=== PATIENT | female | born 1995 | race Caucasian/White ===

== ENCOUNTER 2019-04-15 15:30 | Inpatient (IN) ==
[2019-04-15] MEDS ORDERED: NS 1,000 ML ONE (16:02)
[2019-04-15] MEDS ORDERED: VANCOMYCIN 1 GM/NS 1 GM/250 ML IVPB IV ONE ×2 (16:11→21:00)
[2019-04-15] MEDS ORDERED: ZOSYN 4.5 GM in NS 100 ML IV ONE (16:11)
[2019-04-15] MEDS ORDERED: NS 1,000 ML IV ONE (16:15)
[2019-04-15] MEDS: NS 2,000 ML IV ONE ×2 (16:17→16:36)
[2019-04-15 16:36] LABS: URINE SOURCE CATH
[2019-04-15 16:36] LABS: INR 1.26; PROTIME 16.5 Seconds (11.0-16.0)
[2019-04-15 16:37] LABS: PTT 40.3 Seconds (22.3-41.8)
[2019-04-15 16:42] LABS: BILIRUBIN URINE NEGATIVE (NEGATIVE); BLOOD URINE MODERATE (NEGATIVE); COLOR YELLOW; GLUCOSE URINE NEGATIVE (NEGATIVE); KETONE URINE NEGATIVE (NEGATIVE); LEUKOCYTES URINE TRACE (NEGATIVE); NITRITE URINE NEGATIVE (NEGATIVE); PH URINE 5.5; PROTEIN URINE 100 mg/dL (NEGATIVE); SP GRAVITY URINE 1.017; TURBIDITY URINE HAZY (CLEAR); UROBILINOGEN URINE 2 mg/dL (NORMAL)
[2019-04-15 16:43] LABS: UR EPITHELIAL CELLS >10 /HPF (<10); URINE BACTERIA NEGATIVE /HPF; URINE RBC <10 /HPF (<10); URINE WBC <10 /HPF (<10)
[2019-04-15 16:43] LABS: BASO# 0.04 X1000 (0.0-0.2); BASO% 0.3 % (0.0-0.8); HEMATOCRIT 29.9 % (37.0-47.0); HEMOGLOBIN 10.4 g/dL (12.0-16.0); IMM GRAN# 0.06 X1000 (0.0-0.04); IMM GRAN% 0.4 % (0.0-0.5); LYMPH# 1.12 X1000 (1.2-3.4); LYMPH% 8.2 % (20.5-51.1); MCH 27.9 PG (27-31); MCHC 34.8 g/dL (33-37); MCV 80.2 FL (81-99); MONO% 10.3 % (1.7-9.3); NEUT# 10.96 X1000 (1.4-6.5); NEUT% 80.8 % (42.2-75.2); PLT 62 X1000 (130-400); RBC 3.73 XMIL (4.2-5.4); WBC 13.58 X1000 (4.8-10.8)
[2019-04-15 16:44] LABS: BLOOD TYPE ARTERIAL; HCO3-(ACT) 14.6 mmoll (20.0-26.0); METHB 1.3 % (0.0-1.5); O2(CT) 17.6 mL/dL (15.0-23.0); O2HB 91.9 % (95.0-99.0); PCO2(98.6) 28 mmHg (35-45); PO2(98.6) 71 mmHg (60-100); SAMPLE BLOOD; SAO2 95.6 % (95.0-100.0); THB 13.6 g/dL (11.5-17.4); pH(98.6) 7.26 (7.35-7.45)
--- NOTE | 2019-04-15 16:51 | PROVIDER DOCUMENTATION ---
HPI-Fever - General Chief Complaint: SEPSIS ALERT - P Stated Complaint: SOB Time Seen by Provider: 04/15/19 15:42 Source: patient Allergies/Adverse Reactions: Patient Allergies Allergy/AdvReac Type Severity Reaction Status Date / Time piperacillin [From Zosyn] AdvReac Severe ANAPHYLAXIS Verified 04/15/19 17:19 tazobactam [From Zosyn] AdvReac Severe ANAPHYLAXIS Verified 04/15/19 17:19 Home Medications: Home Medication List Medication Instructions Recorded Confirmed Last Taken Type Guaifenesin [Mucinex] 600 mg PO PRN PRN 04/15/19 04/15/19 Unknown History - History of Present Illness-Fever Nature of Presenting Problem: pt is 23 YO female w past hx of IV drug use was dropped off at ED by male who stated she was coming off of several illicit drugs including methamphetamine, pt is extremely weak and lethargic upon arrival, states she has pain in lower extremities, lower abdomen, and rt hip with rt shoulder pain. pt reacts to painful stimuli but is very weak and possible disoriented during interview, she reports intermittent fevers for past week. 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 pt deneis allergies or PMH Fever Severity/Quality: reports: subjective Onset/Duration: reports: 1 week ago Timing: reports: intermittent Severity: reports: moderate Context: reports: decreased mental status, other (substance abuse DO w IV drug use) Cognitive Baseline: alert, oriented x3 Modifying Factors: improves with: nothing Associated Symptoms: reports: loss of appetite, malaise, muscle aches, nausea, shortness of breath, weakness, trouble walking Similar Symptoms Previously?: No Recently seen or treated by another doctor?: No - Glascow Coma Score Best Eye Response ([place]): (4) open spontaneously Best Verbal Response (Ron): (5) oriented Best Motor Response (Ron): (6) obeys commands Review of Systems - Adult - REVIEW OF SYSTEMS - ADULT ROS:: limited per condition Constitutional: reports: chills, fever, fatique Eyes: reports: no symptoms reported Ears, Nose, Mouth & Throat: reports: no symptoms reported Cardiovascular: reports: see HPI Respiratory: reports: see HPI Gastrointestinal: reports: nausea, poor appetite Genitourinary: reports: incontinence, urgency Integumentary: reports: see HPI Neurological: reports: no symptoms reported Psychiatric: reports: see HPI, other (substance abuse DO) Endocrine: reports: no symptoms reported Hematologic/Lymphatic: reports: no symptoms reported Allergic/Immunologic: reports: no symptoms reported Past History - Adult - PAST MEDICAL HISTORY-ADULT Review of Records: reports: Old Records Reviewed, Nursing Assessment Review, Medications Reviewed Major Childhood Illnesses: reports: denies history Cardiovascular: reports: denies history Respiratory: reports: denies history Gastrointestinal: reports: denies history Obstetrical/Gynecological: reports: denies history Genitourinary: reports: denies history Musculoskeletal: reports: chronic pain (back pain) Neurological: reports: denies history Psychiatric: reports: depression Endocrine/Immune: reports: denies history Other Conditions: reports: denies history - PRIOR SURGERIES/PROCEDURES Surgical/Procedure History: reports: none - IMMUNIZATION STATUS Childhood Immunizations: See Nurse Assessment Flu Vaccine: See Nurse Assessment - FAMILY HISTORY Family History: reviewed, not pertinent - SOCIAL HISTORY Smoking: greater than 1 pack/day Substance Use: none/never Alcohol Use Frequency: never Physical Exam-General - PHYSICAL EXAM-ADULT Initial Vital Signs Reviewed: Yes - CONSTITUTIONAL General Appearance: severe distress, thin, lethargic - EYES Eyes: PERRL/EOMI, pink conjunctivae - HEAD, EARS, NOSE, MOUTH & THROAT HENMT: normocephalic/atraumatic, moist mucous membranes - NECK Neck: non-tender - RESPIRATORY Respiratory: chest non-tender, accessory muscle use, crackles, other (tachypnic) - CARDIOVASCULAR Cardiovascular: normal peripheral pulses, regular rate, rhythm, no edema - GASTROINTESTINAL (ABDOMEN) Abdominal Exam: normal bowel sounds, soft, tenderness (generalized tenderness) - LYMPHATIC Lymphatic: no adenopathy, axilla node tender - MUSCULOSKELETAL Back Exam: normal inspection, no CVA tenderness Extremity: normal range of motion, non-tender, normal gait, normal inspection - SKIN Integumentary: normal color, normal turgor, warm/dry - NEUROLOGIC Neurologic: saw grinder II-XII nml as tested, grossly normal - PSYCHIATRIC Psych/Mental Status: normal mood/affect, normal thought content, normal thought process, oriented x 3 Progress - PLAN OF CARE/RESULTS Progress/Plan/Lab Results: Vital Signs - 8 hr 04/15/19 15:39 04/15/19 16:30 04/15/19 17:26 Temperature 98.3 F Pulse Rate 145 H 121 H 116 H Respiratory Rate 48 H 35 H 44 H Blood Pressure 91/61 103/46 110/63 O2 Sat by Pulse Oximetry 95 98 95 04/15/19 18:34 Temperature Pulse Rate 122 H Respiratory Rate 43 H Blood Pressure 100/59 O2 Sat by Pulse Oximetry 96 Bedside Urine ED: Urine Bedside Start: 04/15/19 15:50 Freq: ORDERED Status: Active Protocol: Activity Type Activity Date Activity User E-Sign Co-Sign Detail Recorded Client Recorded Date Recorded By Document 04/15/19 16:32 [id number] 04/15/19 16:32 [id number] 04/15/19 16:32 Point of Care [Bedside Point of Care] -Lot # [id number] - Results Negative -Control Line Visible? Yes Laboratory Results - last 24 hr 04/15/19 04/15/19 04/15/19 16:14 16:14 16:14 WBC 13.58 H RBC 3.73 L Hgb 10.4 L Hct 29.9 L MCV 80.2 L MCH 27.9 MCHC 34.8 RDW Std Deviation 14.0 Plt Count 62 L MPV Not Reportable Immature Gran % (Auto) 0.4 Neut % (Auto) 80.8 H Lymph % (Auto) 8.2 L [place] % (Auto) 10.3 H Eos % (Auto) 0.0 Baso % (Auto) 0.3 Immature Gran # (Auto) 0.06 H Neut # (Auto) 10.96 H Lymph # (Auto) 1.12 L [place] # (Auto) 1.40 H Eos # (Auto) 0.00 Baso # (Auto) 0.04 Segmented Neutrophils 79 H Lymphocytes 8 L Monocytes 13 H Hypochromia 3+ PT INR PTT (Actin FS) D-Dimer, Quantitative 6.33 H Specimen Type Sample Site pH pCO2 pO2 HCO3 Base Excess Oxyhemoglobin ABG O2 Sat (Calculated) ABG O2 Saturation ABG Carboxyhemoglobin ABG Methemoglobin Nitin Test A-a O2 Difference Total Hemoglobin Lactate Blood Gas Modality FiO2 % Sodium Potassium Chloride Carbon Dioxide Anion Gap BUN Creatinine Estimated GFR/1.73 m2 BUN/Creatinine Ratio Glucose POC Glucose Calculated Osmolality Calcium Total Bilirubin AST ALT Alkaline Phosphatase Creatine Kinase Creatine Kinase Index CK-MB (CK-2) Troponin T < 0.010 Total Protein Albumin Globulin Albumin/Globulin Ratio Plasma Lactate Urine Source Urine Color Urine Turbidity Urine pH Ur Specific [place] Urine Protein Ur Glucose (Stick) Ur Ketones (Stick) Urine Blood Urine Nitrite Urine Bilirubin Urobilinogen Dipstick Urine Leukocytes Urine WBC (Auto) Urine RBC (Auto) U Epithel Cells (Auto) Urine Bacteria (Auto) Urine Opiates Screen Ur Oxycodone Screen Urine Methadone Screen U Propoxyphene Qual Ur Barbituates Screen Ur Tricyclics Screen Ur Phencyclidine Scrn Ur Amphetamines Screen U Methamphetamines Scrn U Benzodiazepines Scrn Urine Cocaine Screen U Cannabinoids Screen Plasma/Serum Ethyl Alc 04/15/19 04/15/19 04/15/19 16:14 16:14 16:14 WBC RBC Hgb Hct MCV MCH MCHC RDW Std Deviation Plt Count MPV Immature Gran % (Auto) Neut % (Auto) Lymph % (Auto) [place] % (Auto) Eos % (Auto) Baso % (Auto) Immature Gran # (Auto) Neut # (Auto) Lymph # (Auto) [place] # (Auto) Eos # (Auto) Baso # (Auto) Segmented Neutrophils Lymphocytes Monocytes Hypochromia PT INR PTT (Actin FS) D-Dimer, Quantitative Specimen Type Sample Site pH pCO2 pO2 HCO3 Base Excess Oxyhemoglobin ABG O2 Sat (Calculated) ABG O2 Saturation ABG Carboxyhemoglobin ABG Methemoglobin Nitin Test A-a O2 Difference Total Hemoglobin Lactate Blood Gas Modality FiO2 % Sodium 124 L Potassium 3.5 Chloride 86 L Carbon Dioxide 21 L Anion Gap 17 BUN 24 H Creatinine 0.7 Estimated GFR/1.73 m2 > 60 BUN/Creatinine Ratio 34 Glucose 110 H POC Glucose Calculated Osmolality 254 Calcium 7.5 L Total Bilirubin 1.30 H AST 991 H ALT 180 H Alkaline Phosphatase 85 Creatine Kinase Creatine Kinase Index CK-MB (CK-2) Troponin T Total Protein 6.5 Albumin 2.7 L Globulin 4.0 Albumin/Globulin Ratio 1.0 Plasma Lactate 2.5 H Urine Source Urine Color Urine Turbidity Urine pH Ur Specific [place] Urine Protein Ur Glucose (Stick) Ur Ketones (Stick) Urine Blood Urine Nitrite Urine Bilirubin Urobilinogen Dipstick Urine Leukocytes Urine WBC (Auto) Urine RBC (Auto) U Epithel Cells (Auto) Urine Bacteria (Auto) Urine Opiates Screen Ur Oxycodone Screen Urine Methadone Screen U Propoxyphene Qual Ur Barbituates Screen Ur Tricyclics Screen Ur Phencyclidine Scrn Ur Amphetamines Screen U Methamphetamines Scrn U Benzodiazepines Scrn Urine Cocaine Screen U Cannabinoids Screen Plasma/Serum Ethyl Alc 04/15/19 04/15/19 04/15/19 16:14 16:14 16:22 WBC RBC Hgb Hct MCV MCH MCHC RDW Std Deviation Plt Count MPV Immature Gran % (Auto) Neut % (Auto) Lymph % (Auto) [place] % (Auto) Eos % (Auto) Baso % (Auto) Immature Gran # (Auto) Neut # (Auto) Lymph # (Auto) [place] # (Auto) Eos # (Auto) Baso # (Auto) Segmented Neutrophils Lymphocytes Monocytes Hypochromia PT 16.5 H INR 1.26 PTT (Actin FS) 40.3 D-Dimer, Quantitative Specimen Type ARTERIAL Sample Site R BRACHIAL pH 7.26 L pCO2 28 L pO2 71 HCO3 14.6 L Base Excess -13.0 L Oxyhemoglobin 91.9 L ABG O2 Sat (Calculated) 17.6 ABG O2 Saturation 95.6 ABG Carboxyhemoglobin 2.60 H ABG Methemoglobin 1.3 Nitin Test NO A-a O2 Difference 44.0 Total Hemoglobin 13.6 Lactate 1.10 Blood Gas Modality ROOM AIR FiO2 % 21.0 Sodium Potassium Chloride Carbon Dioxide Anion Gap BUN Creatinine Estimated GFR/1.73 m2 BUN/Creatinine Ratio Glucose POC Glucose Calculated Osmolality Calcium Total Bilirubin AST ALT Alkaline Phosphatase Creatine Kinase 451 H Creatine Kinase Index 0.4 CK-MB (CK-2) 1.68 Troponin T Total Protein Albumin Globulin Albumin/Globulin Ratio Plasma Lactate Urine Source Urine Color Urine Turbidity Urine pH Ur Specific [place] Urine Protein Ur Glucose (Stick) Ur Ketones (Stick) Urine Blood Urine Nitrite Urine Bilirubin Urobilinogen Dipstick Urine Leukocytes Urine WBC (Auto) Urine RBC (Auto) U Epithel Cells (Auto) Urine Bacteria (Auto) Urine Opiates Screen Ur Oxycodone Screen Urine Methadone Screen U Propoxyphene Qual Ur Barbituates Screen Ur Tricyclics Screen Ur Phencyclidine Scrn Ur Amphetamines Screen U Methamphetamines Scrn U Benzodiazepines Scrn Urine Cocaine Screen U Cannabinoids Screen Plasma/Serum Ethyl Alc 04/15/19 04/15/19 04/15/19 16:30 16:30 17:09 WBC RBC Hgb Hct MCV MCH MCHC RDW Std Deviation Plt Count MPV Immature Gran % (Auto) Neut % (Auto) Lymph % (Auto) [place] % (Auto) Eos % (Auto) Baso % (Auto) Immature Gran # (Auto) Neut # (Auto) Lymph # (Auto) [place] # (Auto) Eos # (Auto) Baso # (Auto) Segmented Neutrophils Lymphocytes Monocytes Hypochromia PT INR PTT (Actin FS) D-Dimer, Quantitative Specimen Type Sample Site pH pCO2 pO2 HCO3 Base Excess Oxyhemoglobin ABG O2 Sat (Calculated) ABG O2 Saturation ABG Carboxyhemoglobin ABG Methemoglobin Nitin Test A-a O2 Difference Total Hemoglobin Lactate Blood Gas Modality FiO2 % Sodium Potassium Chloride Carbon Dioxide Anion Gap BUN Creatinine Estimated GFR/1.73 m2 BUN/Creatinine Ratio Glucose POC Glucose 122 H Calculated Osmolality Calcium Total Bilirubin AST ALT Alkaline Phosphatase Creatine Kinase Creatine Kinase Index CK-MB (CK-2) Troponin T Total Protein Albumin Globulin Albumin/Globulin Ratio Plasma Lactate Urine Source CATH Urine Color YELLOW Urine Turbidity HAZY Urine pH 5.5 Ur Specific [place] 1.017 Urine Protein 100 A Ur Glucose (Stick) NEGATIVE Ur Ketones (Stick) NEGATIVE Urine Blood MODERATE A Urine Nitrite NEGATIVE Urine Bilirubin NEGATIVE Urobilinogen Dipstick 2 A Urine Leukocytes TRACE A Urine WBC (Auto) <10 Urine RBC (Auto) <10 U Epithel Cells (Auto) >10 A Urine Bacteria (Auto) NEGATIVE Urine Opiates Screen PRESUMPTIVE POSITIVE A Ur Oxycodone Screen NONE DETECTED Urine Methadone Screen NONE DETECTED U Propoxyphene Qual NONE DETECTED Ur Barbituates Screen NONE DETECTED Ur Tricyclics Screen NONE DETECTED Ur Phencyclidine Scrn NONE DETECTED Ur Amphetamines Screen PRESUMPTIVE POSITIVE A U Methamphetamines Scrn PRESUMPTIVE POSITIVE A U Benzodiazepines Scrn NONE DETECTED Urine Cocaine Screen NONE DETECTED U Cannabinoids Screen NONE DETECTED Plasma/Serum Ethyl Alc 04/15/19 19:00 WBC RBC Hgb Hct MCV MCH MCHC RDW Std Deviation Plt Count MPV Immature Gran % (Auto) Neut % (Auto) Lymph % (Auto) [place] % (Auto) Eos % (Auto) Baso % (Auto) Immature Gran # (Auto) Neut # (Auto) Lymph # (Auto) [place] # (Auto) Eos # (Auto) Baso # (Auto) Segmented Neutrophils Lymphocytes Monocytes Hypochromia PT INR PTT (Actin FS) D-Dimer, Quantitative Specimen Type Sample Site pH pCO2 pO2 HCO3 Base Excess Oxyhemoglobin ABG O2 Sat (Calculated) ABG O2 Saturation ABG Carboxyhemoglobin ABG Methemoglobin Nitin Test A-a O2 Difference Total Hemoglobin Lactate Blood Gas Modality FiO2 % Sodium Potassium Chloride Carbon Dioxide Anion Gap BUN Creatinine Estimated GFR/1.73 m2 BUN/Creatinine Ratio Glucose POC Glucose Calculated Osmolality Calcium Total Bilirubin AST ALT Alkaline Phosphatase Creatine Kinase Creatine Kinase Index CK-MB (CK-2) Troponin T Total Protein Albumin Globulin Albumin/Globulin Ratio Plasma Lactate 2.0 Urine Source Urine Color Urine Turbidity Urine pH Ur Specific [place] Urine Protein Ur Glucose (Stick) Ur Ketones (Stick) Urine Blood Urine Nitrite Urine Bilirubin Urobilinogen Dipstick Urine Leukocytes Urine WBC (Auto) Urine RBC (Auto) U Epithel Cells (Auto) Urine Bacteria (Auto) Urine Opiates Screen Ur Oxycodone Screen Urine Methadone Screen U Propoxyphene Qual Ur Barbituates Screen Ur Tricyclics Screen Ur Phencyclidine Scrn Ur Amphetamines Screen U Methamphetamines Scrn U Benzodiazepines Scrn Urine Cocaine Screen U Cannabinoids Screen Plasma/Serum Ethyl Alc Orders Category Date Time Status Cardiac Monitoring DIRECTED Care 04/15/19 15:50 Active ED: Urine Bedside ORDERED Care 04/15/19 15:50 Active Finger Stick Blood Sugar (ED) DIRECTED Care 04/15/19 16:11 Active [place] Cath Insertion ORDERED Care 04/15/19 16:12 Active IV Insertion ORDERED Care 04/15/19 16:16 Completed Notify MD of + Sepsis Screen NOW Care 04/15/19 16:16 Active Nursing- Obtain EKG ONCE Care 04/15/19 15:50 Active CHEST-1 VIEW [RAD] Stat Exams 04/15/19 16:[address] ABD/PELVIS/PULM ARTERIES [CT] Stat Exams 04/15/19 17:51 Completed ABG [RESP] Routine Lab 04/15/19 16:22 Completed ALCOHOL BLOOD Stat Lab 04/15/19 16:14 Completed BLOOD CULTURE [BLDCUL] Stat Lab 04/15/19 16:16 Received CBC WITH DIFF [HEME] Stat Lab 04/15/19 16:14 Completed CK PROFILE [SP CHEM] Stat Lab 04/15/19 16:14 Completed COMPREHENSIVE METABOLIC PANEL [CHEM] Stat Lab 04/15/19 16:14 Completed D-DIMER [COAG] Stat Lab 04/15/19 16:14 Completed LACTATE, PLASMA [CHEM] Lab 04/15/19 19:00 Completed LACTATE, PLASMA [CHEM] Lab 04/15/19 22:30 Uncollected LACTATE, PLASMA [CHEM] Q3H Lab 04/15/19 16:14 Completed PROTIME WITH INR [COAG] Stat Lab 04/15/19 16:14 Completed PTT [COAG] Stat Lab 04/15/19 16:14 Completed TROPONIN T Stat Lab 04/15/19 16:14 Completed URINALYSIS W/POSS RFLX CULT [URINALYSIS] Stat Lab 04/15/19 16:30 Completed URINE CULTURE [RM] Routine Lab 04/15/19 16:45 Received URINE DRUG SCREEN PL Stat Lab 04/15/19 16:30 Completed 0.9% Sodium Chloride Inj [Ns] 1,000 ml Med 04/15/19 16:02 Discontinued .ROUTE As directed 0.9% Sodium Chloride Inj [Ns] 1,000 ml Med 04/15/19 16:15 Discontinued IV 999 mls/hr 0.9% Sodium Chloride Inj [Ns] 2,000 ml Med 04/15/19 16:15 Discontinued IV 999 mls/hr Diphenhydramine [Benadryl] Med 04/15/19 17:00 Discontinued 50 mg .ROUTE .STK-MED ONE Diphenhydramine [Benadryl] Med 04/15/19 17:02 Discontinued 50 mg IV NOW ONE Lactated Ringers Inj [Lr] 1,000 ml Med 04/15/19 17:27 Active IV 125 mls/hr Levofloxacin 750 mg/D5w [Levaquin 750 mg/D5w] Med 04/15/19 17:26 Discontinued 750 mg in 150 ml IV NOW Lorazepam [Ativan] Med 04/15/19 17:05 Discontinued 0.5 mg IV NOW ONE Methylprednisolone Sod Succ [Solu-Medrol] Med 04/15/19 17:14 Discontinued 125 mg IV NOW ONE Piperacillin/Tazobactam [Zosyn] 4.5 gm Med 04/15/19 16:11 Discontinued 0.9% Sodium Chloride Inj [Ns] 100 ml IV NOW Vancomycin 1 gm/Ns Med 04/15/19 16:11 Discontinued 1 gm in 250 ml IV NOW Vancomycin 1 gm/Ns Med 04/15/19 21:00 Discontinued 1 gm in 250 ml IV NOW Oxygen Device Stat Oth 04/15/19 16:16 Active EKG [EKG] Stat Ther 04/15/19 15:50 Draft Transfer/Admit Order [TRANSFER] Routine Transfer 04/15/19 21:40 Ordered Result Diagrams: 04/15/19 16:14 04/15/19 16:14 - REASSESSMENT Reassessment #1 Time Reassessed: 18:00 Status: improving Reassessment Comment: good distal pulses, and cap refill, lethargic, BP stable w/o pressors, tach - EKG 1 Time of EKG reading by physician:: 16:26 EKG Read and Signed by:: Dipesh Muñoz EKG Interpretation (*Must complete 3 of following elements*): Abnormal Rate: 124 Rhythm: sinus tach [place]: normal QRS: normal, RBB ST Wave: normal - CONSULTS/PCP/HOSPITALIST Notification #1 *Consult/PCP/Hospitalist*: Dr Sandoval Reason/Comments: admit to [facility] ICU Consult Disposition: Admit Departure - Departure Date of Disposition Decision: 04/15/19 Time of Disposition Decision: 22:14 DIAGNOSIS: Sepsis, PNA (pneumonia), Transaminitis Disposition: ADMITTED INPATIENT 09 Certified Medical Emergency: Emergent Condition: Critical Referrals and Follow-Ups: None,PCP [Primary Care Provider] - - Critical Care Note This patient required my direct & personal management of CC.: Yes Total Time (mins): 120 Critical Care Statement: This patient required my direct personal management to treat or rule out processes, the absence of which, could potentiallly result in sudden, clinically significant life or limb threatening deterioration. Comments: pt was septic requiring 2000 ml bolus and antibiotic therapy Attestation - Physician/ CHANI Attestation Patient care was provided by Advanced Practice Provider:: Yes Advanced Practice Provider:: Servando Rodriguez Advanced Practice Provider documentation review:: The Mid-level provider documentation, treatment plan and medical decision making was reviewed by the physician who agrees with all treatment and medical decision making by the MLP. The physician spent face to face time with patient:: No Advanced Practice Provider documentation review:: Supervising physician onsite and consulted in the evaluation and care of this patient. The physician did not have a face to face encounter with the patient.
[2019-04-15 16:59] LABS: UR AMPHETAMINES QUAL PRESUMPTIVE POSITIVE (NONE DETECT); UR BARBITUATES QUAL NONE DETECTED (NONE DETECT); UR BENZODIAZEPIN QUAL NONE DETECTED (NONE DETECT); UR CANNABINOIDS QUAL NONE DETECTED (NONE DETECT); UR COCAINE QUAL NONE DETECTED (NONE DETECT); UR METHADONE QUAL NONE DETECTED (NONE DETECT); UR METHAMPHETAMINE QUAL PRESUMPTIVE POSITIVE (NONE DETECT); UR OPIATES QUAL PRESUMPTIVE POSITIVE (NONE DETECT); UR OXYCODONE QUAL NONE DETECTED (NONE DETECT); UR PCP QUAL NONE DETECTED (NONE DETECT); UR PROPOXYPHENE QUAL NONE DETECTED (NONE DETECT); UR TCA QUAL NONE DETECTED (NONE DETECT)
[2019-04-15] MEDS ORDERED: BENADRYL ONE (17:00)
[2019-04-15] MEDS ORDERED: BENADRYL IV ONE (17:02)
[2019-04-15] MEDS ORDERED: ATIVAN IV ONE (17:05)
[2019-04-15 17:07] LABS: LYMPHS 8 % (21-51); MONO 13 % (1-9); SEGS 79 % (42-75)
[2019-04-15 17:08] LABS: HYPOCHROM 3+
[2019-04-15 17:10] LABS: AGAP 17; ALBUMIN 2.7 g/dL (3.5-5.0); ALKALINE PHOSPHATASE 85 U/L (32-104); BUN 24 mg/dL (8-22); CALCIUM 7.5 mg/dL (8.8-10.2); CHLORIDE 86 mmol/L (98-107); COSMO 254; CREATININE 0.7 mg/dL (0.5-0.9); ESTIMATED GFR > 60; GLUCOSE 110 mg/dL (70-104); GPT 180 U/L (10-36); POTASSIUM 3.5 mmol/L (3.5-5.1); SODIUM 124 mmol/L (136-145); TCO2 21 mmol/L (25-35); TOTAL PROTEIN 6.5 g/dL (6.3-8.3)
[2019-04-15] MEDS ORDERED: SOLU-MEDROL IV ONE (17:14)
[2019-04-15 17:26] LABS: CK INDEX 0.4 (0.0-2.5); CK-MB 1.68 ng/mL (0.0-5.0); GOT 991 U/L (10-30)
[2019-04-15] MEDS ORDERED: LEVAQUIN 750 MG/D5W 750 MG/150 ML IVPB IV ONE (17:26)
[2019-04-15] MEDS ORDERED: LR 1,000 ML IV ONE (17:27)
[2019-04-15 17:32] LABS: ALLEN TEST NO; MODALITY ROOM AIR
--- NOTE | 2019-04-15 17:35 | EKG Report ---
Test Performed on : 04/15/2019 4:26:52 PM Test Reason : tachycardia hx drug use Blood Pressure : / mmHG Vent. Rate : 124 BPM Atrial Rate : 124 BPM P-R Int : 124 ms QRS Dur : 106 ms QT Int : 354 ms P-R-T Axes : 075 048 056 degrees QTc Int : 508 ms Sinus tachycardia. Incomplete right bundle branch block Borderline ECG When compared with ECG of 03-FEB-2019 19:45, No significant change was found Unconfirmed Result
--- NOTE | 2019-04-15 19:11 | Diag Imaging Result Doc PS360 ---
EXAM: CT ABD/PELVIS/PULM ARTERIES INDICATION: Hypoxia, abd pain TECHNIQUE: This exam was performed using automated exposure control, adjustment of mA or kV according to patient size, and/or use of iterative reconstruction technique. Thin section axial images and 3-D MIPS were obtained through the chest. Conventional axial images and coronal reformats were obtained through the abdomen and pelvis. COMPARISON: CT abdomen and pelvis dated 11/22/2014. No prior chest CT is available for comparison. FINDINGS: CTA CHEST: There is excessive respiratory motion artifact, which limits sensitivity for detection of small pulmonary emboli, especially in the distal branches. However, given this limitation, no filling defects are identified to indicate pulmonary embolism. There is no evidence of aortic dissection or aneurysm. No definite mediastinal or hilar lymphadenopathy is identified on this study. There is extensive dense patchy airspace consolidation seen throughout both lungs with a slight basilar predominance. Differential considerations include cryptogenic organizing pneumonia, atypical infectious pneumonia, or even septic emboli. A few of these lesions show signs of early cavitation. There is trace pleural fluid bilaterally. CT ABDOMEN/PELVIS: There is splenomegaly that is probably slightly worse than the previous study. The liver is also prominent measuring up to 20.2 cm craniocaudally. The gallbladder, pancreas, and adrenal glands are unremarkable. There is heterogeneous renal enhancement in a pattern of a striated nephrogram bilaterally. This is nonspecific but is often associated with pyelonephritis. Please correlate clinically. There is no hydronephrosis. There is a [place] catheter in the urinary bladder and the bladder is unremarkable, otherwise. The reproductive tract is grossly unremarkable as imaged. There is mild to moderate distention of most of the colon and essentially all of the small bowel with air-fluid levels throughout. This is nonspecific. Consider ileus. No focal bowel wall thickening is appreciated. No definite bowel wall thickening is identified. The stomach is mildly distended. No free abdominal gas or free fluid is identified. IMPRESSION: 1.Atypical extensive dense multifocal infiltrates seen throughout both lungs. Please see the above discussion. 2.Hepatosplenomegaly. 3.Moderate distention of multiple loops of small bowel and colon with multiple air-fluid levels that are nonspecific. Consider ileus. 4.Heterogeneous renal enhancement in a striated nephrogram pattern. This is nonspecific but is often associated with pyelonephritis. Please correlate clinically. 5.Excessive respiratory motion artifact limits evaluation of the pulmonary arteries. However, no discrete pulmonary embolism can be identified as imaged. Electronically signed by Leonardo Fair 04/15/2019 7:09 PM
--- NOTE | 2019-04-15 19:18 | Diag Imaging Result Doc PS360 ---
EXAM: CHEST-1 VIEW INDICATION: resp distress TECHNIQUE: One view COMPARISON: 02/03/2019 FINDINGS: There is severe patchy airspace infiltrates seen throughout both lungs with a mid and lower lung zone predominance suggesting atypical multifocal pneumonia. There is no discrete pleural fluid collection or pneumothorax by plain radiograph. The cardiomediastinal silhouette and central vasculature are grossly unremarkable. IMPRESSION: Extensive atypical patchy infiltrates seen throughout both lungs as described. Electronically signed by Leonardo Fair 04/15/2019 7:16 PM
[2019-04-16] MEDS ORDERED: ZOFRAN IV PRN (00:36)
[2019-04-16] MEDS ORDERED: VANCOMYCIN IV PER PHARMACY MISC SCH (00:45)
[2019-04-16] MEDS: NS 1,000 ML IV SCH ×3 (01:32→19:03)
--- NOTE | 2019-04-16 01:43 | HISTORY AND PHYSICAL ---
PRIMARY CARE PHYSICIAN: None. CHIEF COMPLAINT: Lethargic, not feeling well. HISTORY OF PRESENTING ILLNESS: A 23-year-old female without any significant medical history who is apparently an IV drug user, who initially presented to [facility] due to patient being lethargic. Apparently, she was dropped by some friend stating that she was getting withdrawals off methamphetamines. She was evaluated in the emergency department. She was tachycardic and she had elevated D-dimer. She had imaging done which did not reveal any PE. However, due to her presenting symptoms and lack of ICU care there, she was transferred to [facility] for further evaluation and management. At time of my examination, she went into respiratory distress and she was put on BiPAP. However, she was able to deny having any fevers, chills, chest pain, hemoptysis, or weight changes. PAST MEDICAL HISTORY: None. PAST SURGICAL HISTORY: None. ALLERGIES: Piperacillin and tazobactam. CURRENT MEDICATIONS: None. SOCIAL HISTORY: The patient admits to vaping. Denies any history of alcohol. Admits to illicit drugs, including IV heroin and IV amphetamines. FAMILY HISTORY: No history of coronary disease. REVIEW OF SYSTEMS: Fourteen point review of system as listed in HPI. Other systems negative. PHYSICAL EXAMINATION: GENERAL: The patient is in some moderate respiratory distress and is currently on BiPAP. VITAL SIGNS: Temperature 98.3 degrees, pulse 145, respiration 48+, blood pressure 91/61. HEENT: Atraumatic, normocephalic. PERRLA. NECK: No masses. CHEST: Rhonchi. CARDIOVASCULAR: Tachycardic. ABDOMEN: Soft. Positive bowel sounds. EXTREMITIES: No edema. NEUROLOGIC: She is awake, alert, oriented x2. GENITOURINARY: No bladder distention. SKIN: Warm. LABORATORIES AND STUDIES: WBC 13.58, hemoglobin 10.4, hematocrit 29.9, platelets 62,000. Sodium 124, potassium 3.5, chloride 86, CO2 is 21, BUN is 24, creatinine 0.7. Glucose 110, AST 991, ALT 180, alkaline phosphatase 85. Creatinine kinase 451. Plasma lactate 2.5. Abdomen and pelvic CT and CT angiogram, no PE noted. There is multifocal infiltrates throughout both lungs, hepatosplenomegaly, possible ileus. ASSESSMENT: A 23-year-old female without any significant past medical history, who was brought to initially [facility] due to patient being lethargic and coming off of methamphetamines apparently. She had imaging done which did show the possibility of pneumonia. Due to lack of ICU care, she was transferred to [facility] for further management. 1. Acute respiratory failure. 2. Suspected pneumonia. 3. Possible vaping-associated illness. 4. Increase in D-dimer. 5. Abnormal liver function tests. 6. Intravenous drug abuse with heroin and methamphetamines. PLAN: 1. The patient is admitted to ICU. 2. We will continue patient on BiPAP. 3. We will check blood cultures. Start patient on IV antibiotics. 4. We will continue with heparin for DVT prophylaxis. 5. Check an abdominal ultrasound. 6. We will check an echocardiogram. 7. We will put patient on DVT prophylaxis with heparin. 8. The patient's condition is guarded. 9. We will continue to follow and reassess. Make further recommendation based on patient's clinical course. cc: Arturo Sandoval MD MTDD
[2019-04-16] MEDS ORDERED: VANCOMYCIN 500 MG/NS 500 MG/100 ML IVPB IV ONE (02:15)
[2019-04-16] MEDS: HEPARIN SUBQ SCH ×2 (02:49→15:13)
[2019-04-16 08:00] LABS: POTASSIUM 3.3 mmol/L (3.5-5.1); SODIUM 136 mmol/L (136-145)
[2019-04-16 08:01] LABS: ALLEN TEST YES; BE 1.9 mmoll (-3.0-3.0); BLOOD TYPE ARTERIAL; HCO3-(ACT) 26.4 mmoll (20.0-26.0); METHB 1.7 % (0.0-1.5); MODALITY BI PAP; O2(CT) 13.1 mL/dL (15.0-23.0); O2HB 94.2 % (95.0-99.0); PCO2(98.6) 33 mmHg (35-45); PO2(98.6) 78 mmHg (60-100); SAMPLE BLOOD; SAO2 97.8 % (95.0-100.0); THB 9.8 g/dL (11.5-17.4); pH(98.6) 7.49 (7.35-7.45)
[2019-04-16 08:33] LABS: AGAP 16; ALB/GLOB RATIO 0.6; ALBUMIN 2.3 g/dL (3.5-5.0); ALKALINE PHOSPHATASE 82 U/L (32-104); BUN 15 mg/dL (8-22); CALCIUM 7.9 mg/dL (8.8-10.2); CHLORIDE 99 mmol/L (98-107); COSMO 273; CREATININE 0.5 mg/dL (0.5-0.9); GLUCOSE 98 mg/dL (70-104); GOT 480 U/L (10-30); GPT 119 U/L (10-36); MAGNESIUM 2.2 mg/dL (1.5-2.7); PHOSPHORUS 1.6 mg/dL (2.7-4.5); TCO2 21 mmol/L (25-35); TOTAL BILIRUBIN 0.97 mg/dL (0.20-1.00); TOTAL PROTEIN 6.4 g/dL (6.3-8.3)
[2019-04-16] MEDS ORDERED: NORCURON ONE (08:35)
[2019-04-16] MEDS ORDERED: VERSED ONE (08:36)
[2019-04-16] MEDS ORDERED: AMIDATE ONE (08:36)
[2019-04-16] MEDS ORDERED: QUELICIN ONE (08:36)
--- NOTE | 2019-04-16 08:36 | PROGRESS NOTE ---
DATE: 04/16/2019 SUBJECTIVE: The patient has been evaluated in the ICU. She is in respiratory distress. Her respiratory rate has been mostly in the 50s and 60s. Blood pressure has been stable. She has been refusing to use the BiPAP machine but now she agreed with that. She admitted to being a drug user and her urine toxicology is positive for opiates, amphetamine, and methamphetamines. No alcohol detected. She is bacteremic. Two out of two blood cultures showed gram-positive cocci. I have an x-ray that showed extensive atypical patchy infiltrate seen throughout both lungs. Also, her abdomen and pelvis showed atypical extensive dense multifocal infiltrates seen throughout both lungs, hepatosplenomegaly, moderate distention of multiple loops, heterogeneous renal enhancement in a striated nephrogram pattern. It is nonspecific but she may have pyelonephritis as well. An extensive respiratory motion artifact limits the evaluation of the pulmonary arteries. However, there is no pulmonary embolism identified. OBJECTIVE: Vital Signs: Temperature as per the nurse right now is 102.2, heart rate 131, respiratory rate 56, blood pressure 122/61, oxygen saturation 96% on the BiPAP machine. HEENT: Head normocephalic. No trauma. PERRLA. Neck: Supple. No JVD. No masses. Central trachea. Chest: Coarse breath sounds bilaterally with rhonchi. Abdomen: Soft. Slightly distended. Decreased bowel sounds. Extremities: No edema, no clubbing, no cyanosis. Neurological Examination: This patient is awake and she is answering my questions but she is also somnolent. She seems to be really tired. She moves all 4 extremities spontaneously and she is following commands. Laboratory: Lab work from today is pending. Laboratory from yesterday, WBC 13.5, hemoglobin 10.4, hematocrit 29.9, platelets 62,000. Sodium 124, potassium 3.5, chloride 86, bicarbonate 21, BUN 24, creatinine 0.7, glucose 110, calcium 7.5. Bilirubin 1.3, AST 191, ALT 180, alkaline phosphatase 85. CK level 451. Albumin 2.7. Positive urine toxicology for presumptive use of opiates, amphetamines, and methamphetamines. ASSESSMENT AND PLAN: 1. Sepsis due to a pneumonia and bacteremia. This patient has been placed on broad-spectrum antibiotics. We have a positive blood culture that showed gram-positive cocci. Continue with vancomycin. We are also going to get an echocardiogram to rule out vegetations since she is an intravenous drug user. I do not hear any murmurs though. 2. Gram-positive cocci bacteremia. Continue with vancomycin. We will ask for an echocardiogram. 3. Pneumonia. She does have atypical extensive dense multifocal infiltrates throughout both lungs. This could be related to an infectious process or vaping use, but since she is bacteremic with gram-positive cocci, likely this is more related to pneumonia. Continue with levofloxacin and vancomycin. I will get infectious disease department to evaluate this patient. 4. Respiratory failure. This patient is breathing around 50 to 60 times per minute. She seems to be tired. Likely, this patient will be intubated. I will wait for the arterial blood gases. At this moment, she is getting treatment through the BiPAP machine. 5. Increased D-dimer, negative CT angiogram of the chest. We will monitor. 6. Abnormal liver function tests. This patient also seems to be severely dehydrated. We asked for a hepatitis panel. We asked also for an abdominal ultrasound. 7. Hyponatremia, likely due to dehydration. Continue with intravenous fluids. 8. Intravenous drug abuse with apparently methamphetamines and possible heroin. As per the patient, she uses drugs through her vein. We will monitor this patient in the intensive care unit for the possibility of withdrawal symptoms as well. Likely, the bacteremia is due to this problem. 9. This patient seems to be remarkably sick. She is bacteremic. She has pneumonia and respiratory failure. We have requested an evaluation by pulmonary department but likely, this patient will be intubated, pending new ABGs at this moment. Pending lab work as well. CRITICAL CARE TIME: 50 minutes. cc: Celso Gonzales MD
[2019-04-16] MEDS ORDERED: VERSED IV ONE (08:38)
[2019-04-16] MEDS ORDERED: ATIVAN IV PRN (08:38)
[2019-04-16] MEDS ORDERED: QUELICIN IV ONE (08:39)
[2019-04-16] MEDS: DIPRIVAN 1% 1,000 MG/100 ML BOTTLE IV SCH ×5 (08:44→23:41)
[2019-04-16] MEDS ORDERED: NS IV ONE (09:06)
[2019-04-16] MEDS ORDERED: POTASSIUM PHOSPHATE IV ONE (09:06)
--- NOTE | 2019-04-16 09:24 | Diag Imaging Result Doc PS360 ---
EXAM: CHEST-1 VIEW INDICATION: ETT placement TECHNIQUE: One view COMPARISON: 04/15/2019 FINDINGS: There is a newly placed ET tube and NG tube. The ET tube projects over the trachea and above the chad at about the T4 level. The NG tube projects well below the diaphragm and is assumed to be in the lumen of the stomach in expected position. Dense patchy airspace consolidations throughout both lungs are essentially stable. Cardiac silhouette is stable. IMPRESSION: Interval intubation and placement of NG tube as described. Stable chest, otherwise. Electronically signed by Leonardo Fair 04/16/2019 9:21 AM
[2019-04-16] MEDS ORDERED: POTASSIUM PHOSPHATE 15 MMOL in NS 250 ML IV ONE (09:30)
[2019-04-16 10:20] LABS: BASO# 0.03 X1000 (0.0-0.2); BASO% 0.2 % (0.0-0.8); EOS# 0.18 X1000 (0.0-0.7); EOS% 1.4 % (0.0-10.0); HEMATOCRIT 27.6 % (37.0-47.0); HEMOGLOBIN 9.5 g/dL (12.0-16.0); IMM GRAN# 0.23 X1000 (0.0-0.04); IMM GRAN% 1.8 % (0.0-0.5); LYMPH# 0.51 X1000 (1.2-3.4); MCH 27.7 PG (27-31); MCHC 34.4 g/dL (33-37); MCV 80.5 FL (81-99); MONO# 0.75 X1000 (0.11-0.59); MONO% 5.8 % (1.7-9.3); NEUT# 11.16 X1000 (1.4-6.5); NEUT% 86.8 % (42.2-75.2); PLT 38 X1000 (130-400); RBC 3.43 XMIL (4.2-5.4); RDW 13.7 % (11.5-14.5); WBC 12.86 X1000 (4.8-10.8)
[2019-04-16 10:23] LABS: BANDS 14 % (0-1); LARGE PLATELETS 1+; LYMPHS 6 % (21-51); SEGS 78 % (42-75)
[2019-04-16] MEDS ORDERED: MORPHINE IV ONE (11:18)
[2019-04-16 12:50] LABS: BASO# 0.04 X1000 (0.0-0.2); BASO% 0.4 % (0.0-0.8); EOS# 0.04 X1000 (0.0-0.7); EOS% 0.4 % (0.0-10.0); HEMATOCRIT 24.6 % (37.0-47.0); HEMOGLOBIN 8.2 g/dL (12.0-16.0); IMM GRAN# 0.19 X1000 (0.0-0.04); IMM GRAN% 1.9 % (0.0-0.5); LYMPH# 0.73 X1000 (1.2-3.4); LYMPH% 7.3 % (20.5-51.1); MCH 27.1 PG (27-31); MCHC 33.3 g/dL (33-37); MCV 81.2 FL (81-99); MONO# 0.68 X1000 (0.11-0.59); MONO% 6.8 % (1.7-9.3); NEUT# 8.29 X1000 (1.4-6.5); NEUT% 83.2 % (42.2-75.2); PLT 43 X1000 (130-400); RBC 3.03 XMIL (4.2-5.4); RDW 13.7 % (11.5-14.5); WBC 9.97 X1000 (4.8-10.8)
[2019-04-16] MEDS: VANCOMYCIN 850 MG in NS 250 ML IV SCH ×2 (14:54→23:06)
--- NOTE | 2019-04-16 15:07 | INFECTIOUS DISEASE CONSULT REP ---
DATE: 04/16/2019 CONCLUSION: The patient is a drug abuser and was admitted to the hospital with bacteremia, pneumonia, and pyelonephritis. The patient has a severe allergy to Zosyn, namely anaphylaxis. RECOMMENDATIONS: I agree with treating the patient with vancomycin and Levaquin pending culture results. DISCUSSION: The patient is unable provide a history. No family member is present. The patient initially went to [facility]. She was lethargic and it was thought that she was having withdrawal from methamphetamines. Patient had tachycardia and elevated D-dimer. She was sent over to the intensive care unit at [facility]. The patient developed respiratory distress on BiPAP and then eventually she was intubated. The patient's chest x-ray shows bilateral infiltrates. CT scan of the abdomen and pelvis shows hepatosplenomegaly, bilateral renal enhancement which can be associated with pyelonephritis. The patient's sputum on Gram stain showed white cells and gram-positive cocci. Blood cultures are growing gram-positive cocci. Urine culture is pending. Urinalysis showed white cells but no bacteria. Drug screen was positive for opiates, amphetamine, and benzodiazepine. The patient's CBC shows a white count of 12,860, hemoglobin 9.5, and platelet count 38,000. Blood gases show a pH of 7.49, a PO2 of 78, and a pCO2 of 33. Creatinine is 0.5. GFR is greater than 60. AST is 480. CK is 451. PAST MEDICAL HISTORY AND PAST SURGICAL HISTORY: Are said both to be none. ALLERGIES: The patient has anaphylaxis after taking Zosyn. MEDICATIONS: Current medications at home, none. SOCIAL HISTORY: The patient does vaping. She does not have a history of alcohol. She does use illicit drugs including heroin and amphetamines. FAMILY HISTORY: No history of coronary artery disease. REVIEW OF SYSTEMS: Unable to be obtained. PHYSICAL EXAMINATION: General: This is an intubated, ill-appearing young female. She is on the ventilator. Head, eyes, ears, nose, throat: The patient has an oral tracheal tube and a nasogastric tube in place. There is no drainage from the nose or ears. Neck: No meningismus. Lungs: Bilateral rhonchi. Cardiovascular: Regular heart rate. Abdomen: Soft and did not appear to be tender. Neurologic: The patient is obtunded. She did not respond to verbal stimuli. She does not have a tremor. Integument: Patient had tattoos. I did not see any needle tracks, however. Thank you for the consult. cc: Melvin Garvey MD
--- NOTE | 2019-04-16 15:48 | ECHO REPORT ---
ORDER DATE: 04/16/2019 INDICATION: IV drug use, shortness of breath, tachycardia. FINDINGS: 1. Right atrium appears normal in size. 2. There is mild tricuspid regurgitation. There is an echodense mass adherent to the septal leaflet as well as possibly the anterior or posterior tricuspid leaflet. This appears to be consistent with endocarditis in the correct clinical setting. 3. Normal RV size and systolic function. 4. No significant pulmonic insufficiency. 5. Normal left atrial size at 2.2 cm. 6. No mitral valve prolapse. Trace mitral regurgitation. 7. Normal LV size, end-diastolic dimension of 3.8 cm. Normal wall thicknesses with a posterior and interventricular septal wall thickness of 0.7 and 0.5 cm respectively. Normal LV systolic function with an estimated EF between 50 and 55% with normal wall motion. 8. Aortic valve opens well. It is trileaflet. No evidence of stenosis or insufficiency. 9. Aorta appears normal in visualized segments. 10. No pericardial effusion seen. cc: MD Arturo Alfonso MD
[2019-04-16 18:35] LABS: BASO# 0.09 X1000 (0.0-0.2); BASO% 0.9 % (0.0-0.8); EOS# 0.01 X1000 (0.0-0.7); EOS% 0.1 % (0.0-10.0); HEMATOCRIT 25.6 % (37.0-47.0); HEMOGLOBIN 8.5 g/dL (12.0-16.0); IMM GRAN# 0.78 X1000 (0.0-0.04); IMM GRAN% 7.8 % (0.0-0.5); LYMPH# 0.94 X1000 (1.2-3.4); LYMPH% 9.4 % (20.5-51.1); MCH 27.2 PG (27-31); MCHC 33.2 g/dL (33-37); MCV 82.1 FL (81-99); MONO# 0.47 X1000 (0.11-0.59); MONO% 4.7 % (1.7-9.3); NEUT# 7.75 X1000 (1.4-6.5); NEUT% 77.1 % (42.2-75.2); PLT 39 X1000 (130-400); RBC 3.12 XMIL (4.2-5.4); RDW 13.8 % (11.5-14.5); WBC 10.04 X1000 (4.8-10.8)
--- NOTE | 2019-04-16 18:37 | PROGRESS NOTE ---
DATE: 04/16/2019 I received a call from Cardiology Department, they completed the echocardiogram for this patient. She looks like has a good ejection fraction, also a normal right ventricular size and systolic function but there is mild tricuspid regurgitation and there is an echodense mass adherent to the septal leaflet as well as possibly the anterior or posterior tricuspid leaflet, this appears to be consistent with endocarditis. DIAGNOSIS: Endocarditis, this patient has a echodense mass adherent to the septal leaflet as well as possibly the anterior or posterior tricuspid leaflet, she does have bacteremia with gram- positive cocci. She has been already placed on vancomycin, Infectious Disease Department on board, probably we will get Cardiology Department on board. cc: Celso Gonzales MD
--- NOTE | 2019-04-16 18:50 | PROVIDER PROGRESS NOTE ---
Progress Note ED note: Called to ICU to intubate pt with respiratory distress. Pt intubated with 7.5 ET Tube first try with placement verified by CO2 detector, auscultation, and CXR. Pt sats 99 % post intubation. No complications noted. Dipesh Muñoz M.D.
[2019-04-16 18:51] LABS: BANDS 4 % (0-1); LARGE PLATELETS 2+; LYMPHS 16 % (21-51); MONO 2 % (1-9); SEGS 76 % (42-75)
[2019-04-16] MEDS: LEVAQUIN 500 MG/D5W 500 MG/100 ML IVPB IV SCH (19:04)
--- NOTE | 2019-04-16 19:06 | Diag Imaging Result Doc PS360 ---
EXAM: US ABDOMEN-COMPLETE INDICATION: Abnormal LFT COMPARISON: None. FINDINGS: There is echogenic sludge in the gallbladder lumen. No shadowing stones are identified. There is no evidence of gallbladder wall thickening or pericholecystic fluid. The common bile duct is normal in diameter. Sonographic De La Cruz's sign was reported to be negative. The liver is prominent measuring up to 19 cm in length. The liver echotexture appears normal. No hepatic mass is identified. Portal venous flow is hepatopetal. The visualized pancreas is unremarkable. The aorta and IVC are grossly unremarkable. There is marked splenomegaly measuring up to 19 cm in the greatest dimension. The kidneys are grossly unremarkable. IMPRESSION: 1.Sludge in the gallbladder lumen but no stones or wall thickening is appreciated. 2.Hepatosplenomegaly. Electronically signed by Leonardo Fair 04/16/2019 7:04 PM
[2019-04-16] MEDS: MORPHINE IV PRN (20:23)
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
[2019-04-17] MEDS: MORPHINE IV PRN ×5 (00:01→22:25)
[2019-04-17 02:20] LABS: BASO# 0.04 X1000 (0.0-0.2); BASO% 0.3 % (0.0-0.8); EOS# 0.05 X1000 (0.0-0.7); EOS% 0.4 % (0.0-10.0); HEMATOCRIT 24.4 % (37.0-47.0); HEMOGLOBIN 8.2 g/dL (12.0-16.0); IMM GRAN# 0.55 X1000 (0.0-0.04); IMM GRAN% 4.7 % (0.0-0.5); LYMPH% 6.9 % (20.5-51.1); MCH 27.5 PG (27-31); MCHC 33.6 g/dL (33-37); MCV 81.9 FL (81-99); MONO# 0.31 X1000 (0.11-0.59); MONO% 2.7 % (1.7-9.3); MPV 13.2 FL (7.4-10.4); NEUT# 9.87 X1000 (1.4-6.5); PLT 51 X1000 (130-400); RBC 2.98 XMIL (4.2-5.4); RDW 13.9 % (11.5-14.5); WBC 11.62 X1000 (4.8-10.8)
[2019-04-17] MEDS: DIPRIVAN 1% 1,000 MG/100 ML BOTTLE IV SCH ×6 (03:19→22:12)
[2019-04-17 03:41] LABS: BANDS 2 % (0-1); LYMPHS 6 % (21-51); SEGS 92 % (42-75)
[2019-04-17 05:31] LABS: AGAP 10; ALB/GLOB RATIO 0.5; ALBUMIN 1.9 g/dL (3.5-5.0); ALKALINE PHOSPHATASE 59 U/L (32-104); BUN 19 mg/dL (8-22); CALCIUM 7.3 mg/dL (8.8-10.2); CHLORIDE 105 mmol/L (98-107); COSMO 280; CREATININE 0.5 mg/dL (0.5-0.9); ESTIMATED GFR > 60; GLUCOSE 104 mg/dL (70-104); GOT 143 U/L (10-30); GPT 57 U/L (10-36); POTASSIUM 3.3 mmol/L (3.5-5.1); SODIUM 139 mmol/L (136-145); TCO2 24 mmol/L (25-35); TOTAL BILIRUBIN 1.09 mg/dL (0.20-1.00); TOTAL PROTEIN 5.8 g/dL (6.3-8.3)
[2019-04-17 05:41] LABS: ALLEN TEST YES; BE 1.6 mmoll (-3.0-3.0); BLOOD TYPE ARTERIAL; HCO3-(ACT) 26.2 mmoll (20.0-26.0); PCO2(98.6) 33 mmHg (35-45); PO2(98.6) 160 mmHg (60-100); SAMPLE BLOOD; SRATE 20 BPM; TVOL 500 mL; pH(98.6) 7.48 (7.35-7.45)
[2019-04-17 05:43] LABS: MODALITY VENTILATOR
[2019-04-17] MEDS: NS 1,000 ML IV SCH ×4 (06:31→22:13)
--- NOTE | 2019-04-17 07:25 | Diag Imaging Result Doc PS360 ---
EXAM: CHEST-PORTABLE 04/17/2019 HISTORY: respiratory failure TECHNIQUE: AP portable at 0544 COMMENT: There is patchy alveolar opacity bilaterally. Some of these opacities appear nodular. The inspiration is less optimal than on 04/16/2019. There is an endotracheal tube with its tip at thoracic inlet and an NG tube which passes below the diaphragm. Overall compared to the previous examination the appearance the chest has not changed appreciably. IMPRESSION: Diffuse nodular and patchy alveolar opacities consistent with pneumonia plus minus septic emboli. Electronically signed by Kuldip Orantes 04/17/2019 7:22 AM
[2019-04-17 07:28] LABS: MAGNESIUM 2.5 mg/dL (1.5-2.7)
[2019-04-17] MEDS: VANCOMYCIN 850 MG in NS 250 ML IV SCH (11:20)
--- NOTE | 2019-04-17 11:33 | INFECTIOUS DISEASE PROGRESS NO ---
DATE: 04/17/2019 PRESENT ILLNESS: The patient has tricuspid valve endocarditis caused by a gram-positive coccus that has not yet been identified, but most likely will be Staph aureus. The patient also has pneumonia and pyelonephritis. MEDICATIONS: The patient is on a combination now of Levaquin and vancomycin. This is day 1 of both antibiotics. EXAM: Vital Signs: Temperature is 99.2 degrees, pulse 117, respirations 28, blood pressure is 108/52. General: This is an ill-appearing young female. She is intubated and sedated. Head/eyes/ears/nose/throat: The patient has an orotracheal and nasal gastric tube in place. Neck: No stiffness. Lungs: Clear to auscultation. Cardiovascular: Heart rate is regular. I did not hear a murmur. Abdomen: Soft and nontender. Neurologic: The patient is obtunded. She does not respond to verbal stimuli. There is no tremor. MEDICATIONS: The patient is on a combination of Levaquin and vancomycin. This is day 1 of both antibiotics. LAB AND X-RAY: CBC shows a white count of 11,620, hemoglobin 8.2, and platelet count 51,000. Blood gases show a pH of 7.48, a PO2 of 160 and pCO2 of 33. Creatinine is 0.5. GFR is greater than 60. AST is 143. Hepatitis panel and HIV antibody tests have been ordered, but are pending. Echocardiogram shows echodense masses attached to the septal and tricuspid valve leaflets that is compatible with endocarditis. ASSESSMENT AND PLAN: The patient has endocarditis, bacteremia and pyelonephritis. She has a severe allergic reaction to Zosyn. I agree with continuing treatment with vancomycin and Levaquin pending further culture results. COMORBIDITIES: The patient is an IV drug abuser. She also does vaping, and she has a history of alcoholism. cc: Melvin Garvey MD
--- NOTE | 2019-04-17 12:37 | PROGRESS NOTE ---
DATE: 04/17/2019 SUBJECTIVE: I saw Ms. Mays this morning in the ICU. She continues to be on a ventilator. She is not able to give any interim history. Per the nursing staff, the night was uneventful. Ms. Mays' father and step-mom were both at the bedside at the time of the encounter. OBJECTIVE: Current Vital Signs: Blood pressure is 112/51, pulse of 113, respirations 26, temperature 98.1 degrees. General: Ms. Mays is a 23-year-old female. She is in bed. She is currently intubated and sedated. HEENT: Mucosa is pink and moist. Anicteric. Acyanotic. Neck: Supple. Chest: Air entry is bilaterally reduced. There are some transmitted sounds from the ventilator. There is also some end expiratory wheezing, rhonchi. Cardiovascular: Regular rate and rhythm. I did not hear any murmurs, but there is a pronounced S1 at the tricuspid area. GI: Abdomen is soft. Bowel sounds present. Extremities: No pedal edema. : [place] catheter was in place. [employer]: The patient will move extremities to painful stimulation. LABORATORY DATA: WBC is 11.62, hemoglobin is 8.2, platelet count of 51,000. The patient has 2% of bands on the peripheral smear. ABG has been reviewed. Chemistry shows a chloride of 3.3. The phosphorus is 2.0. Magnesium is normal. Albumin is 1.9. The patient's urine toxicology was positive for opioids, amphetamines, methamphetamines. Microbiology data shows sputum is positive for gram-positive cocci. Urine is also now showing gram-positive cocci. Blood is showing gram-positive cocci. A urine in January showed Escherichia coli, which was a long time. The patient's I's and O's show urine output is 1500. She is currently positive balance of 2655. MEDICATIONS: Include: 1. Levaquin 500 IV daily. 2. Vancomycin per pharmacy protocol. Today is day 1. 3. Normal saline at 125 per hour. IMAGING STUDIES OF SIGNIFICANCE: A CT scan of the abdomen and pelvis, which was done 3 days ago, shows extensive atypical dense multifocal infiltrates throughout both lungs. Ultrasound of the abdomen showed sludge in the gallbladder. There is also hepatosplenomegaly. A chest x-ray this morning shows diffuse nodular and patchy alveolar opacity, consistent with pneumonia plus/minus septic emboli. ASSESSMENT: 1. Tricuspid valve endocarditis with blood culture positive with gram-positive cocci, presumably a staphylococcal infection, which is complicated with septic emboli, sepsis, hepatosplenomegaly, and thrombocytopenia. The patient is currently on intravenous antibiotics. We are still pending the identity and sensitivity on the culture result, and Infectious Disease is on board. 2. Hypoxemic respiratory failure. The patient is currently on ventilator. 3. Multifocal pneumonias, most likely septic emboli. Will continue with the current antimicrobial coverage ( Vancomycin and Levaquin) 4. Transaminitis. 5. Protein calorie malnutrition. The patient is currently nothing by mouth. We would most likely start her on some tube feedings tomorrow, once she is hemodynamically more stable. 6. Electrolyte abnormality, including hypokalemia and hypophosphatemia. Will replace accordingly. 7. Poly recreational substance abuse. Family is aware. Will discuss this in more detail with the patient once she is off the ventilator. 8. Altered mental status, most likely due to sepsis-induced global encephalopathy. The patient is currently on sedation, so we will re-evaluate this at a later date. 9. Thrombocytopenia, most likely due to infectious etiology. Hepatitis panel has already been ordered. Will also rule out any ongoing disseminated intravascular coagulation. Disseminated intravascular coagulation panel has been ordered. In general, Ms. Mays continues to be remarkably sick. She is currently septic as a result of drug-induced tricuspid valve endocarditis, which has been complicated with respiratory failure, altered mental status, and liver injury. She will continue to be on the antibiotics. Will continue with the ventilatory support, and we will await further recommendations from the other subspecialties involved with her care. I have discussed my findings and plan with the father and the step-mom, who both were at the bedside. CRITICAL TIME SPENT: 45 minutes. cc: MD NAINA Dennis
[2019-04-17 12:43] LABS: BASO# 0.04 X1000 (0.0-0.2); BASO% 0.5 % (0.0-0.8); EOS# 0.19 X1000 (0.0-0.7); EOS% 2.4 % (0.0-10.0); HEMATOCRIT 25.3 % (37.0-47.0); HEMOGLOBIN 8.3 g/dL (12.0-16.0); IMM GRAN# 0.08 X1000 (0.0-0.04); LYMPH# 0.72 X1000 (1.2-3.4); LYMPH% 9.2 % (20.5-51.1); MCH 27.7 PG (27-31); MCHC 32.8 g/dL (33-37); MCV 84.3 FL (81-99); MONO# 0.22 X1000 (0.11-0.59); MONO% 2.8 % (1.7-9.3); MPV 12.5 FL (7.4-10.4); NEUT# 6.61 X1000 (1.4-6.5); NEUT% 84.1 % (42.2-75.2); PLT 54 X1000 (130-400); RDW 14.4 % (11.5-14.5); WBC 7.86 X1000 (4.8-10.8)
[2019-04-17] MEDS ORDERED: POTASSIUM PHOSPHATE 40 MEQ in NS 250 ML IV ONE (13:00)
[2019-04-17 13:04] LABS: BANDS 12 % (0-1); LYMPHS 5 % (21-51); SEGS 82 % (42-75)
--- NOTE | 2019-04-17 13:17 | Diag Imaging Result Doc PS360 ---
EXAM: CHEST-PORTABLE 04/17/2019 HISTORY: R CVL placement TECHNIQUE: AP portable at 1304 COMMENT: There is a right internal jugular central venous catheter with its tip just above the right atrium. There continues to be diffuse patchy alveolar and nodular opacities bilaterally. IMPRESSION: Pneumonia and probable septic emboli. Electronically signed by Kuldip Orantes 04/17/2019 1:14 PM
--- NOTE | 2019-04-17 17:00 | OPERATIVE NOTE ---
PROCEDURE DATE: 04/17/2019 PREOPERATIVE DIAGNOSES: 1. Acute respiratory failure. 2. Pneumonia. 3. Intravenous drug abuse. 4. Endocarditis. 5. Protein calorie malnutrition. 6. Need for intravenous access. POSTOPERATIVE DIAGNOSES: 1. Acute respiratory failure. 2. Pneumonia. 3. Intravenous drug abuse. 4. Endocarditis. 5. Protein calorie malnutrition. 6. Need for intravenous access. PRINCIPAL PROCEDURE: Right internal jugular central venous line using ultrasound. SURGEON: Thi Armenta MD. ANESTHESIA: Local ESTIMATED BLOOD LOSS: 20 mL. DRAINS: None. INDICATIONS: Ms. Anny Mays is a 23-year-old white female in our ICU ventilated critically ill. She needs IV access for pressors, nutrition and antibiotics. We were asked to place a central venous line. DESCRIPTION OF PROCEDURE: The patient was placed supine in her bed ICU 10. Right neck was prepped and draped within the sterile field. She was sedated. I used ultrasound guidance to identify the right internal jugular vein base of right neck. Local anesthetic was used and then an 18-gauge needle was used to access the right internal jugular vein and through this needle a guidewire was placed. Needle was removed. A dilator was placed over the guidewire and then a is a triple-lumen antibiotic coated central venous line was placed over the guidewire into the superior vena cava. I secured the catheter to the skin with 3-0 silk stitches and a dressing was applied. I flushed all ports with saline. Portable chest x-ray was ordered for placement. She tolerated the procedure well. cc: Thi Armenta MD
[2019-04-17] MEDS: LEVAQUIN 500 MG/D5W 500 MG/100 ML IVPB IV SCH (18:21)
[2019-04-17 18:47] LABS: BASO# 0.03 X1000 (0.0-0.2); BASO% 0.5 % (0.0-0.8); EOS# 0.04 X1000 (0.0-0.7); EOS% 0.6 % (0.0-10.0); HEMATOCRIT 24.6 % (37.0-47.0); HEMOGLOBIN 7.9 g/dL (12.0-16.0); IMM GRAN# 0.17 X1000 (0.0-0.04); IMM GRAN% 2.6 % (0.0-0.5); LYMPH# 0.86 X1000 (1.2-3.4); LYMPH% 13.1 % (20.5-51.1); MCH 27.2 PG (27-31); MCHC 32.1 g/dL (33-37); MCV 84.8 FL (81-99); MONO# 0.16 X1000 (0.11-0.59); MONO% 2.4 % (1.7-9.3); MPV 12.1 FL (7.4-10.4); NEUT# 5.33 X1000 (1.4-6.5); NEUT% 80.8 % (42.2-75.2); PLT 57 X1000 (130-400); RDW 14.5 % (11.5-14.5); WBC 6.59 X1000 (4.8-10.8)
[2019-04-17 19:40] LABS: BANDS 4 % (0-1); BASO 1 % (0-1); LARGE PLATELETS OCCASIONAL; LYMPHS 9 % (21-51); MONO 1 % (1-9); SEGS 85 % (42-75)
[2019-04-17 23:46] LABS: HIV ANTIBODY SCREEN SEE COMMENTS
[2019-04-18 00:51] LABS: BASO# 0.02 X1000 (0.0-0.2); BASO% 0.3 % (0.0-0.8); EOS# 0.09 X1000 (0.0-0.7); EOS% 1.3 % (0.0-10.0); HEMATOCRIT 22.3 % (37.0-47.0); HEMOGLOBIN 7.1 g/dL (12.0-16.0); IMM GRAN# 0.11 X1000 (0.0-0.04); IMM GRAN% 1.6 % (0.0-0.5); LYMPH# 0.72 X1000 (1.2-3.4); LYMPH% 10.5 % (20.5-51.1); MCH 27.4 PG (27-31); MCHC 31.8 g/dL (33-37); MCV 86.1 FL (81-99); MONO# 0.26 X1000 (0.11-0.59); MONO% 3.8 % (1.7-9.3); MPV 11.7 FL (7.4-10.4); NEUT# 5.64 X1000 (1.4-6.5); NEUT% 82.5 % (42.2-75.2); PLT 51 X1000 (130-400); RBC 2.59 XMIL (4.2-5.4); RDW 14.4 % (11.5-14.5); WBC 6.84 X1000 (4.8-10.8)
[2019-04-18] MEDS: DIPRIVAN 1% 1,000 MG/100 ML BOTTLE IV SCH ×7 (01:23→20:50)
[2019-04-18] MEDS: NS 1,000 ML IV SCH ×4 (01:24→16:54)
[2019-04-18] MEDS: VANCOMYCIN 1,200 MG in NS 250 ML IV SCH ×3 (01:41→15:00)
[2019-04-18] MEDS: MORPHINE IV PRN ×6 (02:25→20:52)
[2019-04-18 04:55] LABS: ALLEN TEST YES; BE -1.8 mmoll (-3.0-3.0); BLOOD TYPE ARTERIAL; HCO3-(ACT) 23.5 mmoll (20.0-26.0); METHB 1.2 % (0.0-1.5); O2(CT) 12.9 mL/dL (15.0-23.0); O2HB 95.6 % (95.0-99.0); PCO2(98.6) 39 mmHg (35-45); PO2(98.6) 95 mmHg (60-100); SAMPLE BLOOD; SAO2 98.6 % (95.0-100.0); SRATE 15 BPM; THB 9.5 g/dL (11.5-17.4); TVOL 500 mL; pH(98.6) 7.38 (7.35-7.45)
[2019-04-18 04:56] LABS: MODALITY VENTILATOR
[2019-04-18 05:28] LABS: BASO# 0.01 X1000 (0.0-0.2); BASO% 0.2 % (0.0-0.8); EOS# 0.08 X1000 (0.0-0.7); EOS% 1.3 % (0.0-10.0); HEMOGLOBIN 6.8 g/dL (12.0-16.0); IMM GRAN# 0.06 X1000 (0.0-0.04); LYMPH# 0.76 X1000 (1.2-3.4); LYMPH% 12.1 % (20.5-51.1); MCH 27.9 PG (27-31); MCHC 32.4 g/dL (33-37); MCV 86.1 FL (81-99); MONO# 0.17 X1000 (0.11-0.59); MONO% 2.7 % (1.7-9.3); MPV 11.4 FL (7.4-10.4); NEUT# 5.22 X1000 (1.4-6.5); NEUT% 82.7 % (42.2-75.2); PLT 50 X1000 (130-400); RBC 2.44 XMIL (4.2-5.4); RDW 14.5 % (11.5-14.5)
[2019-04-18 06:18] LABS: AGAP 11; ALB/GLOB RATIO 0.4; ALBUMIN 1.7 g/dL (3.5-5.0); ALKALINE PHOSPHATASE 94 U/L (32-104); BUN 18 mg/dL (8-22); CALCIUM 7.2 mg/dL (8.8-10.2); CHLORIDE 111 mmol/L (98-107); COSMO 288; CREATININE 0.5 mg/dL (0.5-0.9); ESTIMATED GFR > 60; GLUCOSE 78 mg/dL (70-104); GOT 61 U/L (10-30); GPT 35 U/L (10-36); POTASSIUM 3.6 mmol/L (3.5-5.1); SODIUM 144 mmol/L (136-145); TCO2 22 mmol/L (25-35); TOTAL BILIRUBIN 2.63 mg/dL (0.20-1.00); TOTAL PROTEIN 5.5 g/dL (6.3-8.3)
--- NOTE | 2019-04-18 07:04 | Diag Imaging Result Doc PS360 ---
CHEST-PORTABLE - 04/18/2019 INDICATION: respiratory failure COMPARISON: 04/17/2019 FINDINGS: Support lines and tubes are stable. Stable extensive bilateral pulmonary opacities. Heart size is normal. No pneumothorax or large pleural effusion. IMPRESSION: No change from prior. Electronically signed by Jhony Aiken 04/18/2019 7:01 AM
[2019-04-18] MEDS ORDERED: NS 500 ML IV ONE (07:49)
[2019-04-18 07:51] LABS: BANDS 4 % (0-1); EOS 2 % (1-10); LYMPHS 4 % (21-51); MONO 2 % (1-9); SEGS 86 % (42-75)
[2019-04-18 07:53] LABS: HYPOCHROM 1+
--- NOTE | 2019-04-18 08:41 | PULMONOLOGY PROGRESS NOTE ---
DATE: 04/17/2019 SUBJECTIVE: The patient remains sedated on mechanical ventilation. She continues to have an elevated minute ventilation. OBJECTIVE: Maximum temperature in the last 24 hours 101.1 degrees. Blood pressure 104/47, heart rate 112, respiratory rate 16, and oxygen saturation 97% HEENT: Pupils are equal. Oropharynx appears clear. Neck: Supple. Lungs: Chest reveals coarse rhonchi bilaterally. Cardiac: S1- S2 Abdomen: Soft. Extremities: Without edema. LABORATORIES: Chest x-ray reveals diffuse bilateral infiltrates consistent with septic emboli. Echocardiogram reveals echodense mass on the tricuspid valve consistent with endocarditis. Sodium 139, potassium 3.3, chloride 105, bicarbonate 24, BUN 19, creatinine 0.5, and albumin 1.9. IMPRESSION: A 23-year-old with: 1. Acute hypoxemic respiratory failure. 2. Bilateral pneumonia with septic emboli. 3. Polysubstance abuse. 4. Endocarditis. 5. Gram-positive bacteremia. 6. Nicotine addiction with ongoing tobacco use. 7. Possible pyelonephritis suggested on CT scan possibly related to septic emboli. PLAN: 1. Continue full ventilatory support given excessive minute ventilation. 2. Continue antibiotics under the direction of Dr. Melvin Garvey. 3. Continue DVT prophylaxis. 4. Continue gastric acid suppression. 5. NG tube placement this evening in anticipation of tube feeds to be initiated by Dr. Monson tomorrow. TIME SPENT: Time spent on critical care management 30+ minutes. cc: Jaime Turcios MD
[2019-04-18 09:02] LABS: INR 1.22; PROTIME 15.6 Seconds (11.0-16.0)
[2019-04-18] MEDS ORDERED: SODIUM CHLORIDE 0.9% INJ SCH (09:15)
[2019-04-18] MEDS: PROTONIX IV SCH (11:08)
[2019-04-18 14:12] LABS: HEPATITIS PROFILE ACUTE SEE COMMENTS
[2019-04-18] MEDS ORDERED: NS 500 ML ONE (14:46)
--- NOTE | 2019-04-18 14:55 | INFECTIOUS DISEASE PROGRESS NO ---
DATE: 04/18/2019 PRESENT ILLNESS: The patient has an oxacillin-sensitive Staph aureus tricuspid valve endocarditis, pneumonia, and urinary tract infection. MEDICATIONS: The patient currently is on vancomycin and Levaquin. PHYSICAL EXAMINATION: Vital Signs: Temperature is 97.4 degrees, pulse 111, respirations 23, blood pressure 122/44. General: This is an ill-appearing, young female. She is intubated and sedated. Head, eyes, ears, nose, throat: No drainage noted from the nose or the ears. She has an orotracheal and nasogastric tube in place. Neck: No meningismus. The patient has a right- sided internal jugular vein catheter in place. The site is not erythematous or purulent. Lungs: Clear to auscultation. Cardiovascular: Regular heart rate. Abdomen: Soft and nontender. Neurologic: The patient is obtunded. There is no tremor. LAB AND X-RAY: CBC shows a white count of 6,300, hemoglobin 6.8, and platelet count 50,000. Blood gases have a pH of 7.38, a PO2 of 95, and a pCO2 of 39. Creatinine is 0.5. GFR is greater than 60. AST is 61. Drug screen is positive for opiates, amphetamine, and methamphetamine. HIV antibody was nonreactive. The patient's blood cultures are growing an oxacillin-sensitive Staph aureus. ASSESSMENT AND PLAN: The patient has an oxacillin-sensitive Staphylococcus aureus endocarditis, urinary tract infection, and pneumonia. She has a drug allergy to Zosyn manifested by anaphylaxis. Therefore, I will have to stay with vancomycin and not switch her to a penicillin antibiotic such as nafcillin or a cephalosporin antibiotics such as cefazolin. I am also planning on getting a CT scan of the head specifically to look for abscesses. COMORBIDITIES: The patient is a drug addict. The she also does vaping and she has a history of alcoholism. cc: Melvin Garvey MD
--- NOTE | 2019-04-18 17:50 | PROGRESS NOTE ---
DATE: 04/18/2019 SUBJECTIVE: This morning, Ms. Mccormick continues to be intubated. She is in the ICU. An aunt was at the bedside at the time of the encounter. OBJECTIVE: Vital signs: Blood pressure is 116/51, pulse of 108, respiration was 26, temperature was 100.3 degrees. Patient was saturating 97% on the mechanical ventilator. General: Ms. Masy is a 23-year-old female. She is in bed. She is currently intubated and sedated. HEENT: Mucosa is pink and moist. Anicteric. Acyanotic. Neck: Supple. Chest: Air entry is bilaterally reduced. There are transmitted sounds from the ventilator. Cardiovascular: Tachycardic, but no murmurs. No rubs. There is slightly pronounced S1 in the tricuspid area. GI: Abdomen is soft, nontender. Bowel sounds are present. Extremities: No pedal edema. [place] catheter is in place. INVESTMENT MANAGER: Patient is currently intubated and sedated. She does, however, withdraw to stimulation. LABORATORY DATA: WBC is 6.20, hemoglobin is 6.8, platelet count is 50. There is only 4% of bands on the peripheral smear. ABG has also been reviewed, unremarkable. Chemistry is under normal ranges. AST is down to 61. ALT has normalized. The patient's HIV antibodies are nonreactive. A chest x-ray this morning continues to show stable extensive bilateral pulmonary opacities. ASSESSMENT: 1. 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 The patient is on intravenous vancomycin. With the pathogen now identified, we will wait for Infectious Disease to make changes to the antimicrobial coverage accordingly. 2. Hypoxemic respiratory failure. Patient continues to be needing the ventilator. Pulmonary Medicine is on board. 3. Multifocal Methicillin sensitive Staphylococcus aureus pneumonia, secondary to septic emboli. 4. Transaminitis, improved. 5. Protein-calorie malnutrition. 6. Electrolyte abnormality, including hypokalemia, hypophosphatemia. We will continue to replace. 7. Polysubstance abuse. 8. Altered mental status on presentation, secondary to sepsis induced encephalopathy. 9. Thrombocytopenia, secondary to the ongoing sepsis. 10. Normocytic anemia. Hemoglobin and hematocrit have dropped to 6.8. We think it is related to the ongoing endocarditis. We will group and crossmatch her for 2 units of packed red blood cell transfusion today. 11. Methicillin sensitive Staphylococcus aureus positive in the blood, in the urine, and the sputum. We think this is all related to the endocarditis. So, in general, Ms. Mays remains fairly stable on the ventilator. She continues to be remarkably sick. Her sputum, blood, and urine have all grown Methicillin sensitive Staphylococcus aureus. The patient is currently on vancomycin. We will wait for Infectious Disease to evaluate her to see if they would narrow down the antimicrobial coverage with nafcillin or any other alternatives. cc: Amado Monson MD Critical time spent 45 minutes NAINA
[2019-04-18 18:58] LABS: BASO# 0.05 X1000 (0.0-0.2); BASO% 0.6 % (0.0-0.8); EOS# 0.06 X1000 (0.0-0.7); EOS% 0.7 % (0.0-10.0); HEMATOCRIT 29.1 % (37.0-47.0); HEMOGLOBIN 9.4 g/dL (12.0-16.0); IMM GRAN# 0.11 X1000 (0.0-0.04); IMM GRAN% 1.3 % (0.0-0.5); LYMPH# 1.19 X1000 (1.2-3.4); LYMPH% 13.8 % (20.5-51.1); MCH 27.9 PG (27-31); MCHC 32.3 g/dL (33-37); MCV 86.4 FL (81-99); MONO# 0.24 X1000 (0.11-0.59); MONO% 2.8 % (1.7-9.3); MPV 11.2 FL (7.4-10.4); NEUT# 6.98 X1000 (1.4-6.5); NEUT% 80.8 % (42.2-75.2); PLT 61 X1000 (130-400); RBC 3.37 XMIL (4.2-5.4); RDW 14.7 % (11.5-14.5); WBC 8.63 X1000 (4.8-10.8)
[2019-04-18 19:35] LABS: BANDS 4 % (0-1); LARGE PLATELETS 2+; LYMPHS 14 % (21-51); SEGS 82 % (42-75)
[2019-04-19] MEDS: DIPRIVAN 1% 1,000 MG/100 ML BOTTLE IV SCH ×4 (00:02→10:24)
[2019-04-19] MEDS: NS 1,000 ML IV SCH (00:36)
[2019-04-19 01:05] LABS: BASO# 0.05 X1000 (0.0-0.2); BASO% 0.6 % (0.0-0.8); EOS# 0.05 X1000 (0.0-0.7); EOS% 0.6 % (0.0-10.0); HEMATOCRIT 29.3 % (37.0-47.0); HEMOGLOBIN 9.6 g/dL (12.0-16.0); IMM GRAN# 0.12 X1000 (0.0-0.04); IMM GRAN% 1.3 % (0.0-0.5); LYMPH# 1.08 X1000 (1.2-3.4); LYMPH% 11.9 % (20.5-51.1); MCH 27.9 PG (27-31); MCHC 32.8 g/dL (33-37); MCV 85.2 FL (81-99); MONO# 0.25 X1000 (0.11-0.59); MONO% 2.8 % (1.7-9.3); MPV 11.1 FL (7.4-10.4); NEUT% 82.8 % (42.2-75.2); PLT 55 X1000 (130-400); RBC 3.44 XMIL (4.2-5.4); RDW 14.9 % (11.5-14.5); WBC 9.05 X1000 (4.8-10.8)
[2019-04-19] MEDS: VANCOMYCIN 1,200 MG in NS 250 ML IV SCH (02:01)
[2019-04-19] MEDS: MORPHINE IV PRN ×2 (03:45→09:50)
[2019-04-19 05:13] LABS: ALLEN TEST YES; BE -6.7 mmoll (-3.0-3.0); BLOOD TYPE ARTERIAL; HCO3-(ACT) 19.7 mmoll (20.0-26.0); METHB 1.1 % (0.0-1.5); O2(CT) 13.8 mL/dL (15.0-23.0); O2HB 95.8 % (95.0-99.0); PCO2(98.6) 35 mmHg (35-45); PO2(98.6) 96 mmHg (60-100); SAMPLE BLOOD; SRATE 15 BPM; THB 10.1 g/dL (11.5-17.4); TVOL 500 mL; pH(98.6) 7.33 (7.35-7.45)
[2019-04-19 05:14] LABS: MODALITY VENTILATOR
[2019-04-19 06:19] LABS: RETIC% 0.46 % (0.8-2.1); RETIC-HE 28.8 PG (28.2-36.6)
[2019-04-19 06:54] LABS: AGAP 17; ALB/GLOB RATIO 0.4; ALBUMIN 1.7 g/dL (3.5-5.0); ALKALINE PHOSPHATASE 140 U/L (32-104); BUN 17 mg/dL (8-22); CALCIUM 7.2 mg/dL (8.8-10.2); CHLORIDE 112 mmol/L (98-107); COSMO 292; CREATININE 0.6 mg/dL (0.5-0.9); ESTIMATED GFR > 60; GLUCOSE 66 mg/dL (70-104); GOT 30 U/L (10-30); GPT 21 U/L (10-36); POTASSIUM 3.4 mmol/L (3.5-5.1); SODIUM 147 mmol/L (136-145); TCO2 18 mmol/L (25-35); TOTAL BILIRUBIN 1.87 mg/dL (0.20-1.00); TOTAL PROTEIN 6.2 g/dL (6.3-8.3)
[2019-04-19 07:12] LABS: BASO# 0.03 X1000 (0.0-0.2); BASO% 0.3 % (0.0-0.8); EOS# 0.07 X1000 (0.0-0.7); EOS% 0.7 % (0.0-10.0); HEMATOCRIT 29.3 % (37.0-47.0); HEMOGLOBIN 9.6 g/dL (12.0-16.0); IMM GRAN# 0.07 X1000 (0.0-0.04); IMM GRAN% 0.7 % (0.0-0.5); LYMPH# 1.05 X1000 (1.2-3.4); LYMPH% 10.3 % (20.5-51.1); MCH 28.1 PG (27-31); MCHC 32.8 g/dL (33-37); MCV 85.7 FL (81-99); MONO% 2.9 % (1.7-9.3); MPV 11.9 FL (7.4-10.4); NEUT# 8.65 X1000 (1.4-6.5); NEUT% 85.1 % (42.2-75.2); PLT 64 X1000 (130-400); RBC 3.42 XMIL (4.2-5.4); RDW 15.2 % (11.5-14.5); WBC 10.17 X1000 (4.8-10.8)
--- NOTE | 2019-04-19 07:43 | Diag Imaging Result Doc PS360 ---
CHEST-PORTABLE - 04/19/2019 INDICATION: respiratory failure COMPARISON: 04/18/2019 FINDINGS: Support lines and tubes are stable. Stable dense, heterogeneous opacities throughout the lungs bilaterally. Heart size is normal. No pneumothorax or large pleural effusion. IMPRESSION: No change from prior. Electronically signed by Jhony Aiken 04/19/2019 7:41 AM
[2019-04-19 08:07] LABS: BANDS 11 % (0-1); LYMPHS 5 % (21-51); MONO 1 % (1-9); SEGS 83 % (42-75)
[2019-04-19] MEDS ORDERED: D5 1/2 NS + KCL 20 MEQ 1,000 ML IV SCH (08:15)
[2019-04-19] MEDS: PROTONIX IV SCH (08:53)
[2019-04-19] MEDS ORDERED: MISC. PHARMACY COMMUNICATION SCH (10:00)
[2019-04-19] MEDS: NON-FORMULARY BULK MED NG SCH (10:55)
[2019-04-19 12:59] LABS: BASO# 0.03 X1000 (0.0-0.2); BASO% 0.3 % (0.0-0.8); EOS# 0.07 X1000 (0.0-0.7); EOS% 0.6 % (0.0-10.0); HEMATOCRIT 31.5 % (37.0-47.0); HEMOGLOBIN 10.4 g/dL (12.0-16.0); IMM GRAN# 0.14 X1000 (0.0-0.04); IMM GRAN% 1.2 % (0.0-0.5); LYMPH# 1.45 X1000 (1.2-3.4); LYMPH% 12.7 % (20.5-51.1); MCV 84.9 FL (81-99); MONO# 0.29 X1000 (0.11-0.59); MONO% 2.5 % (1.7-9.3); NEUT% 82.7 % (42.2-75.2); PLT 66 X1000 (130-400); RBC 3.71 XMIL (4.2-5.4); RDW 15.5 % (11.5-14.5); WBC 11.38 X1000 (4.8-10.8)
[2019-04-19] MEDS ORDERED: PRECEDEX 200 MICROGM in NS 48 ML IV SCH (13:00)
[2019-04-19] MEDS ORDERED: HALDOL IV PRN (13:03)
[2019-04-19 14:23] LABS: HCV BY PCR SEE COMMENTS
[2019-04-19] MEDS: VANCOMYCIN 1,400 MG in NS 250 ML IV SCH (14:44)
[2019-04-19] MEDS: ALBUMIN 25% IV SCH (14:45)
--- NOTE | 2019-04-19 14:47 | INFECTIOUS DISEASE PROGRESS NO ---
DATE: 04/19/2019 PRESENT ILLNESS: The patient has an oxacillin-sensitive Staph aureus tricuspid valve endocarditis, pneumonia, and urinary tract infection. MEDICATIONS: The patient currently is on vancomycin and Levaquin. Day 1 of being on vancomycin and Levaquin will be when the 1st repeat blood culture is sterile. PHYSICAL EXAMINATION: Vital Signs: Temperature is 98 degrees, pulse 116 respirations 36, blood pressure 119/48. General: This is an ill-appearing, young female. She is intubated and sedated. Head, eyes, ears, nose, throat: She has an orotracheal tube and a nasogastric tube in place. Neck: No stiffness. The patient has a right-sided internal jugular venous catheter in place. The site is not purulent or bleeding. Lungs: Bilateral rhonchi. Cardiovascular: Heart rate is regular. Abdomen: Soft and nontender. Neurologic: The patient is obtunded. She does not have a tremor. LAB AND X-RAY: The patient's CBC shows a white count of 10,170, hemoglobin 9.6, and platelet count 64,000. Blood gases show a pH of 7.33, a PO2 of 96, and a pCO2 of 35. Creatinine is 0.6. GFR is greater than 60. Hepatitis panel is positive for hepatitis C. HIV antibody is negative. Repeat blood cultures are growing gram-positive cocci. ASSESSMENT AND PLAN: Patient has an oxacillin-sensitive Staph aureus tricuspid valve endocarditis, pneumonia, and urinary tract infection. Because of her very serious reaction to Zosyn, namely anaphylaxis ,I am going to be treating the patient with vancomycin and not oxacillin or nafcillin or Ancef. Also the patient will be on Levaquin. The patient's repeat blood cultures appear to be positive and most likely I am going to add rifampin. The problem there, however, is that the patient on the hepatitis panel is positive for hepatitis C. If this is an active infection then the rifampin would contribute to liver toxicity. If the hepatitis C by PCR is negative, then I could go ahead and add rifampin. Also I am checking into the way the rifampin will be given. It can be given IV, but I would like to give it through the nasogastric tube. COMORBIDITIES: She is a drug addict. She also does vaping and alcoholism. cc: Melvin Garvey MD
--- NOTE | 2019-04-19 14:52 | PROGRESS NOTE ---
DATE: 04/19/2019 SUBJECTIVE: This morning, Ms. Mays continues to be intubated. No acute changes overnight. The father and other 2 family members were at the bedside at the time of the encounter. OBJECTIVE: Vital Signs: Blood pressure is 89/45 with a MAP of 55, pulse of 119, respirations 27, temperature 99.5 degrees. General: Ms. Mays is a 23-year-old female. She is in bed, intubated and sedated. HEENT: Mucosa is pink and moist. Anicteric. Acyanotic. Neck: Supple. Chest: Air entry is bilaterally reduced. There are some transmitted sounds from the ventilator. There is also rhonchi. Cardiovascular: Tachycardic, but no murmurs, no rubs, no gallops. There is pronounced S1 in the tricuspid area. GI: Abdomen is soft. Bowel sounds present. No hepatosplenomegaly. Extremities: Trace pedal edema. There is also some edema on the upper extremities. There is a mild erythematous swelling over the lateral aspect of the left hand. : [place] catheter is in place. RETAIL DEPARTMENT MANAGER: The patient is currently intubated and sedated, but will withdraw from pain. Has good gag and pupillary reflex. LABORATORY DATA: WBC is 11.38, hemoglobin is 10.4, platelet count of 66,000. Chemistry is also reviewed. Sodium is 147, potassium is 3.4, chloride is 112. Blood culture, repeat yesterday, still continues to show gram-positive cocci. ASSESSMENT: 1. Tricuspid valve endocarditis with methicillin-sensitive Staphylococcus aureus bacteremia complicated with septic emboli to both lungs, sepsis, hepatosplenomegaly, and thrombocytopenia. The patient is currently on vancomycin. Rifampin has been added by Infectious Disease. 2. Acute hypoxemic respiratory failure. The patient continues to be on the ventilator. Today is day 2 on the ventilator. 3. Multifocal methicillin-sensitive Staphylococcus aureus pneumonia secondary to septic emboli. 4. Transaminitis, improved. 5. Protein calorie malnutrition. Will start the patient on some tube feedings. 6. Polysubstance abuse. 7. Altered mental status on presentation secondary to sepsis-induced encephalopathy. 8. Normocytic anemia. The patient is status post 2 packed red blood cells transfusion. Hemoglobin and hematocrit have normalized. 9. Electrolyte abnormality, including hypernatremia, hypokalemia. We have made changes to her baseline fluids. 10. Fluid overload. The patient is currently more than 10,000 positive fluid balance. I think part of it is third spacing. We have cut back on the fluid. We are going to give her albumin and Lasix today. 11. Septic shock with methicillin-sensitive Staphylococcus aureus bacteremia. Repeat blood cultures continue to show gram-positive cocci. Will wait on Infectious Diseases to make any further changes to the antimicrobial therapy. In general, Ms. Mays continues to be remarkably sick. She is still intubated. She seems to be edematous. Documentation reveals she is positive balance of over 10,000 mL of fluid. We are going to give her albumin with Lasix. We are going to continue with the current antimicrobial coverage. Rifampin has been added to her medication by Infectious Diseases. I have updated the family about her current situation. CRITICAL TIME SPENT: 45 minutes. cc: Amado Monson MD MTDD
[2019-04-19] MEDS: LASIX IV SCH (15:04)
[2019-04-19] MEDS ORDERED: MORPHINE IV PRN (15:43)
[2019-04-19] MEDS ORDERED: ATIVAN IV PRN (15:47)
[2019-04-19 16:03] LABS: MAGNESIUM 2.2 mg/dL (1.5-2.7); PHOSPHORUS 5.1 mg/dL (2.7-4.5)
[2019-04-19 16:28] LABS: PREALBUMIN 4.1 mg/dL (20-40)
[2019-04-19] MEDS ORDERED: SODIUM BICARBONATE 8.4% ONE (16:29)
--- NOTE | 2019-04-19 16:39 | Diag Imaging Result Doc PS360 ---
EXAM: CHEST-PORTABLE 04/19/2019 HISTORY: CODE TECHNIQUE: AP portable supine at 1628 COMMENT: There are large bilateral pneumothoraces with near complete collapse of both lungs. This was not the case at 0551. There is extensive soft tissue emphysema. The endotracheal tube remains at the thoracic inlet and the NG tube passes below the diaphragm. IMPRESSION: Bilateral large pneumothoraces and soft tissue emphysema. The findings were called to the ICU and readback at 1636. Electronically signed by Kuldip Orantes 04/19/2019 4:37 PM
--- NOTE | 2019-04-19 17:29 | Diag Imaging Result Doc PS360 ---
EXAM: CHEST-PORTABLE 04/19/2019 HISTORY: Chest tube placement TECHNIQUE: AP portable at 1715 COMMENT: There is an NG tube with its tip below the diaphragm. There is an endotracheal tube with its tip at the thoracic inlet. There is a left chest tube with its tip in the apex and a right chest tube which is apparently looped medially with its tip directed to the apex. The bilateral pneumothoraces which were present on the previous study at 1628 have been evacuated. There is still extensive soft tissue emphysema and apparent pneumomediastinum. There is extensive alveolar opacity in both lungs which is worse than on the previous examination of 04/19/2019, particularly in the parahilar zone on the right. IMPRESSION: Evacuation of bilateral pneumothoraces. Pulmonary edema superimposed on pre-existing pneumonia and/or septic emboli. Pneumomediastinum and soft tissue emphysema. Electronically signed by Kuldip Orantes 04/19/2019 5:26 PM
[2019-04-19 17:58] LABS: ALLEN TEST YES; BE -23.7 mmoll (-3.0-3.0); BLOOD TYPE ARTERIAL; HCO3-(ACT) 6.5 mmoll (20.0-26.0); METHB 1.6 % (0.0-1.5); O2(CT) 14.4 mL/dL (15.0-23.0); O2HB 97.5 % (95.0-99.0); PCO2(98.6) 42 mmHg (35-45); PO2(98.6) 404 mmHg (60-100); SAMPLE BLOOD; SAO2 100.7 % (95.0-100.0); SRATE 15 BPM; THB 9.7 g/dL (11.5-17.4); TVOL 500 mL
[2019-04-19 17:59] LABS: MODALITY VENTILATOR
[2019-04-19 18:03] LABS: EOS# 0.07 X1000 (0.0-0.7); EOS% 0.3 % (0.0-10.0); HEMATOCRIT 30.8 % (37.0-47.0); HEMOGLOBIN 9.2 g/dL (12.0-16.0); LYMPH# 8.33 X1000 (1.2-3.4); LYMPH% 38.5 % (20.5-51.1); MCH 27.4 PG (27-31); MCHC 29.9 g/dL (33-37); MCV 91.7 FL (81-99); MONO# 0.49 X1000 (0.11-0.59); MONO% 2.3 % (1.7-9.3); MPV 12.3 FL (7.4-10.4); PLT 59 X1000 (130-400); RBC 3.36 XMIL (4.2-5.4); RDW 16.4 % (11.5-14.5); WBC 21.64 X1000 (4.8-10.8)
[2019-04-19 18:08] LABS: ALB/GLOB RATIO 0.5; ALBUMIN 1.8 g/dL (3.5-5.0); CALCIUM 7.8 mg/dL (8.8-10.2); CREATININE 1.3 mg/dL (0.5-0.9); POTASSIUM 5.6 mmol/L (3.5-5.1); TOTAL BILIRUBIN 1.86 mg/dL (0.20-1.00); TOTAL PROTEIN 5.3 g/dL (6.3-8.3)
[2019-04-19] MEDS ORDERED: SODIUM BICARBONATE 8.4% IV ONE (18:10)
[2019-04-19] MEDS: EPINEPHRINE 8 MG in D5W 250 ML IV SCH (18:21)
[2019-04-19] MEDS: SODIUM BICARBONATE 8.4% 100 MEQ in D5W 1,000 ML IV SCH (18:42)
[2019-04-19 18:48] LABS: BANDS 7 % (0-1); BASO 1 % (0-1); LYMPHS 45 % (21-51); MONO 1 % (1-9); NRBC 3 % (0-0); SEGS 39 % (42-75)
[2019-04-19 18:49] LABS: LARGE PLATELETS OCCASIONAL; POIKILOCYTOSIS OCCASIONAL
--- NOTE | 2019-04-19 18:50 | PROGRESS NOTE ---
DATE: 04/19/2019 ADDENDUM TO PROGRESS NOTE (ACTUALLY RESUSCITATION NOTE): Couple of minutes before 16:00 hours today a Code Blue was called by the ICU staff on Ms. Mays. Apparently she had gone into asystole on the monitor and the monitor alarmed started ringing, so they went in to evaluate her. She was found to be pulseless and she was in a systole Dr. Kim, my colleague was in the unit, so he went immediately went to evaluate the patient. Chest compressions were started right away and both BLS and ACLS protocol were instituted. I came down just a few minutes after the code was called. When I arrived the code was in progress. A total of 4 epinephrines and 2 bicarbonate and 1 calcium gluconate was given after which ROSC was obtained. Subsequently, the patient was noted to be remarkably swollen, especially on the face. When I went to examined her, it became very apparent to me that she was having a lot of subcutaneous emphysema and I suspected that she had pneumothorax with generalized subcutaneous emphysema and that the patient could potentially be in tension pneumothorax. At about 16:12 pulse was lost again. A BLS and ACLS protocol was initiated. At that point, I did call the surgery team to come and assist us with putting in a chest tube. At that time, Dr. Iverson had a case in the OR and the patient had just been put to sleep, so he did ask me to get a chest x-ray 1st to confirm my suspicion, which was done and we immediately realized that the patient has bilateral pneumothorax. I did call back and spoke with the nurse who was assisting Dr. Iverson in the OR. I was notified that he would come and check on the patient as soon as he comes out. I did make a 2nd call to the ER for Dr. Muñoz to come to assist with chest tube placement. Bilateral chest tubes were placed by Dr. Muoñz from the ER immediately after we which we were able to get a stabilized pulse, stabilized blood pressure and organize rhythm on the monitor. Patient got coded from 16:17 to 16:57 when the code was overall with return of spontaneous circulation. At that point Ms. Mays has already had bilateral chest tubes. A post procedure x-ray did confirm bilateral chest tubes in place with resolution of the pneumothorax. We are still pending the official report on that. Before the chest tubes were placed, I went out there and spoke with the family, the father and about 4 different family members. After our discussions, the father decided that we should go ahead with a chest tube. After the chest tube placement and with return of spontaneous circulation and patient being hemodynamically stable, I went back to notify the family about the clinical state at this point. For now, Ms. Mays continues to be on epinephrine drip. We are going to get a CBC, CMP, and ABG after the post resuscitation. Of note, Ms. Mays has barely put out just a little bit over 250 mL of urine in the in almost 12 hours. I think she is significantly shut down in the kidneys. We will see what her labs look like. At this point, she is a remarkably swollen in her face. I could barely open the eyes to examine the eyes. She does not have any gag reflex and she will not withdraw to any pain. She has a regular organized pulse and has normal blood pressure. We will continue to evaluate her and continue with her critical care management. Dr. Iverson came afterwards to evaluate the patient. I was able to talk to him, he went to the bedside. He looked at both chest tubes. He thinks they are in the right position and that surgery will continue to follow her. I truly appreciated the entire ICU staff, the ER staff including Dr. Muñoz; and Dr. Iverson, for all helping with the resuscitation efforts of Ms. Mays. CRITICAL TIME SPENT: Was 1 hour 30 minutes. cc: Amado Monson MD MTDSharri
[2019-04-19 20:29] LABS: ALLEN TEST YES; BE -17.6 mmoll (-3.0-3.0); BLOOD TYPE ARTERIAL; HCO3-(ACT) 11.2 mmoll (20.0-26.0); METHB 1.6 % (0.0-1.5); O2(CT) 12.8 mL/dL (15.0-23.0); PCO2(98.6) 43 mmHg (35-45); PO2(98.6) 124 mmHg (60-100); SAMPLE BLOOD; SAO2 99.1 % (95.0-100.0); SRATE 15 BPM; THB 9.3 g/dL (11.5-17.4); TVOL 500 mL
[2019-04-19] MEDS: LEVOPHED 8 MG in D5 1/2 NS 250 ML IV SCH ×2 (20:30→23:39)
[2019-04-19 20:33] LABS: MODALITY VENTILATOR; pH(98.6) 7.05 (7.35-7.45)
[2019-04-19] MEDS: NEO-SYNEPHRINE 50 MG in NS 250 ML IV SCH (20:47)
[2019-04-20] MEDS ORDERED: SODIUM BICARBONATE 8.4% IV PUSH ONE (00:28)
[2019-04-20] MEDS ORDERED: PITRESSIN IV SCH (00:30)
[2019-04-20] MEDS: NEO-SYNEPHRINE 50 MG in NS 250 ML IV SCH ×6 (00:42→13:34)
[2019-04-20] MEDS: PITRESSIN 40 UNIT in NS 100 ML IV SCH ×3 (00:42→13:17)
[2019-04-20 00:45] LABS: ALLEN TEST YES; BE -18.5 mmoll (-3.0-3.0); BLOOD TYPE ARTERIAL; HCO3-(ACT) 10.5 mmoll (20.0-26.0); METHB 1.2 % (0.0-1.5); O2(CT) 12.2 mL/dL (15.0-23.0); O2HB 96.8 % (95.0-99.0); PCO2(98.6) 48 mmHg (35-45); PO2(98.6) 129 mmHg (60-100); SAMPLE BLOOD; SRATE 15 BPM; THB 8.8 g/dL (11.5-17.4); TVOL 500 mL
[2019-04-20 00:46] LABS: MODALITY VENTILATOR
[2019-04-20 00:52] LABS: BASO# 0.44 X1000 (0.0-0.2); BASO% 1.5 % (0.0-0.8); EOS# 0.11 X1000 (0.0-0.7); EOS% 0.4 % (0.0-10.0); HEMATOCRIT 28.1 % (37.0-47.0); HEMOGLOBIN 8.6 g/dL (12.0-16.0); IMM GRAN# 2.02 X1000 (0.0-0.04); IMM GRAN% 6.8 % (0.0-0.5); LYMPH# 5.01 X1000 (1.2-3.4); LYMPH% 16.8 % (20.5-51.1); MCH 27.8 PG (27-31); MCHC 30.6 g/dL (33-37); MCV 90.9 FL (81-99); MONO# 0.77 X1000 (0.11-0.59); MONO% 2.6 % (1.7-9.3); MPV 11.5 FL (7.4-10.4); NEUT# 21.48 X1000 (1.4-6.5); NEUT% 71.9 % (42.2-75.2); PLT 57 X1000 (130-400); RBC 3.09 XMIL (4.2-5.4); RDW 16.8 % (11.5-14.5); WBC 29.83 X1000 (4.8-10.8)
[2019-04-20] MEDS: SODIUM BICARBONATE 8.4% 100 MEQ in D5W 1,000 ML IV SCH ×2 (03:25→12:00)
[2019-04-20] MEDS: LEVOPHED 8 MG in D5 1/2 NS 250 ML IV SCH ×3 (03:27→13:17)
[2019-04-20] MEDS: VANCOMYCIN 1,400 MG in NS 250 ML IV SCH (03:34)
[2019-04-20 05:32] LABS: BLOOD TYPE ARTERIAL; HCO3-(ACT) 11.7 mmoll (20.0-26.0); METHB 1.3 % (0.0-1.5); O2(CT) 12.9 mL/dL (15.0-23.0); O2HB 97.2 % (95.0-99.0); PCO2(98.6) 30 mmHg (35-45); PO2(98.6) 145 mmHg (60-100); SAMPLE BLOOD; SAO2 99.9 % (95.0-100.0); SRATE 15 BPM; THB 9.2 g/dL (11.5-17.4); TVOL 500 mL
[2019-04-20 05:33] LABS: ALLEN TEST YES; MODALITY VENTILATOR; pH(98.6) 7.15 (7.35-7.45)
[2019-04-20 06:11] LABS: BASO% 0.4 % (0.0-0.8); HEMATOCRIT 27.1 % (37.0-47.0); HEMOGLOBIN 8.3 g/dL (12.0-16.0); IMM GRAN# 1.14 X1000 (0.0-0.04); LYMPH# 3.37 X1000 (1.2-3.4); LYMPH% 11.8 % (20.5-51.1); MCH 27.4 PG (27-31); MCHC 30.6 g/dL (33-37); MCV 89.4 FL (81-99); MONO# 0.88 X1000 (0.11-0.59); MONO% 3.1 % (1.7-9.3); MPV 11.9 FL (7.4-10.4); NEUT# 23.04 X1000 (1.4-6.5); NEUT% 80.7 % (42.2-75.2); PLT 48 X1000 (130-400); RBC 3.03 XMIL (4.2-5.4); RDW 16.4 % (11.5-14.5); WBC 28.53 X1000 (4.8-10.8)
[2019-04-20 06:36] LABS: AGAP 32; ALB/GLOB RATIO 0.7; ALBUMIN 2.1 g/dL (3.5-5.0); ALKALINE PHOSPHATASE 367 U/L (32-104); BUN 33 mg/dL (8-22); CHLORIDE 107 mmol/L (98-107); COSMO 309; ESTIMATED GFR 30; GLUCOSE 157 mg/dL (70-104); GOT < 5 U/L (10-30); GPT 1430 U/L (10-36); SODIUM 150 mmol/L (136-145); TCO2 11 mmol/L (25-35); TOTAL BILIRUBIN 4.42 mg/dL (0.20-1.00); TOTAL PROTEIN 5.2 g/dL (6.3-8.3)
[2019-04-20 06:37] LABS: POTASSIUM 6.2 mmol/L (3.5-5.1)
[2019-04-20 06:49] LABS: LYMPHS 10 % (21-51); SEGS 88 % (42-75)
[2019-04-20] MEDS: EPINEPHRINE 8 MG in D5W 250 ML IV SCH (08:34)
[2019-04-20] MEDS ORDERED: SOLU-CORTEF IV SCH (10:00)
[2019-04-20] MEDS: ALBUMIN 25% IV SCH (10:03)
[2019-04-20] MEDS: PROTONIX IV SCH (10:04)
[2019-04-20] MEDS: NON-FORMULARY BULK MED NG SCH (10:05)
--- NOTE | 2019-04-20 10:58 | PROGRESS NOTE ---
DATE: 04/20/2019 Ms. Mays is on the ventilator on maximum pressors. She was admitted on 04/15/2019, lethargic, not feeling well. No primary care physician. A 23-year-old female without any significant medical history, apparently IV drug user, presented to [facility] lethargic, apparently dropped off by a friend saying she was getting withdrawals from coming off amphetamines. Evaluated in the emergency department. She was tachycardiac and had elevated D-dimer. Imaging done did not reveal any pulmonary emboli. Went to ICU, transferred to [facility] here. Dr. Garvey has been following the patient's bacteremia and pyelonephritis. She has a severe allergy to Zosyn namely anaphylaxis so treated with vancomycin and Levaquin. Continues. She went into respiratory arrest and they worked with her for a long time and found tricuspid valve endocarditis, methicillin-resistant Staphylococcus aureus bacteremia complicated by septic emboli to both lungs, sepsis, hepatosplenomegaly and thrombocytopenia. The patient currently on vancomycin, acute hypoxemic respiratory failure, intubated. She has 2 chest tubes for bilateral pneumothorax, severe protein calorie malnutrition, transaminitis. The family has made her no code. Poor prognosis. REVIEW OF HER ORDERS: Getting albumin 50 grams IV daily, Lasix 40 mg a day, Protonix 40 mg IV q.24 hours, vancomycin 1400 mg IV q.12. cc: Nitin Faith MD
--- NOTE | 2019-04-20 11:09 | GENERAL SURGERY PROGRESS NOTE ---
DATE: 04/20/2019 SUBJECTIVE: Remains critically ill, on the ventilator. Bilateral chest tubes with air leaks. She is on high ventilator settings. She is tachycardic. She is sedated. OBJECTIVE: White count is 28, hematocrit is 27. I reviewed her ABG. She is acidotic with a pH of 7, a base deficit of 18.5, and a lactate of 12.5. Potassium 6.2, creatinine is up to 2. Bilirubin is up to 4.42. ASSESSMENT AND PLAN: This is a 23-year-old female who had a code event. She had bilateral pneumothoraces and chest tubes placed. She has a lot of subcutaneous air, ongoing air leak, and critically ill. She has been managed. We will keep her tubes as they are currently. Very grim prognosis. cc: Mackenzie Garvey MD
[2019-04-20] MEDS: LASIX IV SCH (11:47)
[2019-04-20 15:20] VITALS: BP 73/62
--- NOTE | 2019-06-02 14:00 | DISCHARGE SUMMARY ---
ADMISSION DATE: 04/15/2019 DISCHARGE DATE: 04/20/2019 She has no primary care physician. She presented feeling lethargic, not feeling well, 23-year-old female without any significant medical history, apparently is an IV drug user and initially presented to [facility] being lethargic. She was dropped off at the hospital by some friends who felt she was withdrawing from methamphetamines. She was evaluated in the emergency department, had tachycardia, elevated D-dimer. She had imaging done which did not reveal any significant abnormality or infection and she was admitted to ICU. She did develop respiratory distress and put on BiPAP. PAST MEDICAL HISTORY: None. PAST SURGICAL HISTORY: Have not listed any. ALLERGIES: Piperacillin and tazobactam. ADMISSION DIAGNOSIS: 1. Acute respiratory failure suspected pneumonia. 2. Possible vaping associated illness. 3. Increased D-dimer. 4. Abnormal liver function tests mild elevation of transaminases. 5. Intravenous drug abuse with heroin and methamphetamines. Her lab was positive for opiates and amphetamines and methamphetamine. She had infectious disease consultation. She did have an abdominal ultrasound on 04/16 sludge in the gallbladder lumen, no stones or wall thickening appreciated. Hepatosplenomegaly appreciated. Echocardiogram with Doppler left ventricular size unremarkable. Ejection fraction between 50 and 55%. Did not see any definitive mural thrombus or anything in the left ventricle. There is a mild tricuspid regurgitation. There is an echodense mass adherent to the septal leaflet as well as possible to anterior posterior tricuspid leaflet appears to be consistent with endocarditis. Infectious Disease was consulted Dr. Kay Garvey. In the face of drug abuse, bacteremia, pneumonia, pyelonephritis and severe allergy to Zosyn started on vancomycin and Levaquin. Repeat chest x-ray on 04/17 diffuse nodular and alveolar opacities consistent with pneumonia plus or minus septic emboli. Note her initial chest x-ray on 04/15 there was extensive atypical patchy infiltrates seen throughout both lungs. She grew out oxacillin sensitive Staph aureus suspecting a tricuspid valve endocarditis, underlying pneumonia and urinary tract infection. She was continued on vancomycin and Levaquin antibiotics, had bilateral pneumothoraces and chest tubes were placed a lot of subcutaneous air, ongoing air leak and was critically ill. She had been intubated on high vent settings. On 04/19/2019 lakisha bryanna was called gone into asystole, monitor alarm started ringing and went to evaluate, she found to be pulseless, was in asystole. She went to evaluate the patient had chest compressions were started, both BLS and ACLS protocol instituted. She had 4 epinephrines, 2 bicarbonate, 1 calcium gluconate. The patient was remarkably swollen, especially in her face. She was having a lot of subcutaneous emphysema and they suspected pneumothorax. Imaging revealed bilateral pneumothorax. Chest tubes were placed. Prognosis was poor. The family was notified critical condition. They did not want to pursue any more pressors. Made a DNR level 1. The patient developed asystole on monitor and was pronounced at 1706 on 03/25. cc: Nitin Faith MD
== END 2019-04-20 14:14 | disposition expired | DRG 870 ==
LOC: P.ED 15:30 → SUATTDRO 22:48 → ICU 22:48
PROVIDERS: ATTEND Emergency Medicine